=== PATIENT | female | born 1945 | race Caucasian/White ===

== ENCOUNTER 2016-03-20 14:36 | Outpatient (CLI) | payer MEDICARE, OTHER | END 2016-03-20 14:37 | disposition home or self-care (01) | DX: I26.99 Other pulmonary embolism without acute cor pulmonale (principal); Z79.01 Long term (current) use of anticoagulants ==

== ENCOUNTER 2016-04-04 08:00 | Outpatient (CLI) | payer MEDICARE, OTHER | END 2016-04-04 08:01 | disposition home or self-care (01) | DX: I26.99 Other pulmonary embolism without acute cor pulmonale (principal); Z79.01 Long term (current) use of anticoagulants ==

== ENCOUNTER 2016-04-19 08:00 | Outpatient (CLI) | payer MEDICARE, OTHER | END 2016-04-19 08:01 | disposition home or self-care (01) | DX: I82.529 Chronic embolism and thrombosis of unspecified iliac vein (principal); I10 Essential (primary) hypertension; Z79.01 Long term (current) use of anticoagulants; Z79.899 Other long term (current) drug therapy ==

== ENCOUNTER 2016-05-02 15:18 | Outpatient (CLI) | payer MEDICARE, OTHER | END 2016-05-02 15:19 | disposition home or self-care (01) | DX: I82.812 Embolism and thrombosis of superficial veins of left lower extremity (principal) ==

== ENCOUNTER 2016-06-05 09:04 | Outpatient (CLI) | payer MEDICARE, OTHER | END 2016-06-05 09:05 | disposition home or self-care (01) | DX: I26.99 Other pulmonary embolism without acute cor pulmonale (principal); Z79.01 Long term (current) use of anticoagulants ==

== ENCOUNTER 2016-06-19 13:06 | Outpatient (CLI) | payer MEDICARE, OTHER | END 2016-06-19 13:07 | disposition home or self-care (01) | DX: I26.99 Other pulmonary embolism without acute cor pulmonale (principal); Z79.01 Long term (current) use of anticoagulants; Z72.89 Other problems related to lifestyle ==

== ENCOUNTER 2016-07-19 09:57 | Outpatient (CLI) | payer MEDICARE, OTHER | END 2016-07-19 09:58 | LOC: LAB.N 09:57 | PROVIDERS: ATTEND Internal Medicine | DX: I26.99 Other pulmonary embolism without acute cor pulmonale (principal) | CPT/HCPCS: 85610 ==

== ENCOUNTER 2016-08-22 10:36 | Outpatient (CLI) | payer MEDICARE, OTHER | END 2016-08-22 10:37 | LOC: LAB.N 10:36 | PROVIDERS: ATTEND Internal Medicine | DX: I26.99 Other pulmonary embolism without acute cor pulmonale (principal); Z79.01 Long term (current) use of anticoagulants | CPT/HCPCS: 85610 ==

== ENCOUNTER 2016-09-18 14:02 | Outpatient (CLI) | payer MEDICARE, OTHER | END 2016-09-18 23:59 | disposition home or self-care (01) | LOC: LAB.N 14:02 | PROVIDERS: ATTEND Internal Medicine | DX: I26.99 Other pulmonary embolism without acute cor pulmonale (principal) | CPT/HCPCS: 85610 ==

== ENCOUNTER 2016-10-03 11:16 | Outpatient (CLI) | payer MEDICARE, OTHER | END 2016-10-03 11:17 | disposition home or self-care (01) | LOC: LAB.N 11:16 | PROVIDERS: ATTEND Internal Medicine | DX: I26.99 Other pulmonary embolism without acute cor pulmonale (principal) | CPT/HCPCS: 85610 ==

== ENCOUNTER 2016-10-18 08:00 | Outpatient (CLI) | payer MEDICARE, OTHER | END 2016-10-18 08:01 | disposition home or self-care (01) | LOC: LAB.N 08:00 | PROVIDERS: ATTEND Internal Medicine | DX: I26.99 Other pulmonary embolism without acute cor pulmonale (principal) | CPT/HCPCS: 85610 ==

== ENCOUNTER 2016-11-01 13:36 | Outpatient (CLI) | payer MEDICARE, OTHER | END 2016-11-01 13:37 | LOC: LAB.N 13:36 | PROVIDERS: ATTEND Internal Medicine | DX: I26.99 Other pulmonary embolism without acute cor pulmonale (principal); Z79.01 Long term (current) use of anticoagulants | CPT/HCPCS: 85610 ==

== ENCOUNTER 2016-11-17 06:54 | Outpatient (CLI) | payer MEDICARE, OTHER | END 2016-11-17 06:55 | disposition home or self-care (01) | LOC: LAB.N 06:54 | PROVIDERS: ATTEND Internal Medicine | DX: I26.99 Other pulmonary embolism without acute cor pulmonale (principal); Z79.01 Long term (current) use of anticoagulants | CPT/HCPCS: 85610 ==

== ENCOUNTER 2016-11-22 10:50 | Outpatient (CLI) | payer MEDICARE, OTHER | END 2016-11-22 10:51 | LOC: LAB.N 10:50 | PROVIDERS: ATTEND Internal Medicine | DX: I26.99 Other pulmonary embolism without acute cor pulmonale (principal); Z79.01 Long term (current) use of anticoagulants | CPT/HCPCS: 85610 ==

== ENCOUNTER 2016-11-29 08:00 | Outpatient (CLI) | payer MEDICARE, OTHER | END 2016-11-29 08:01 | disposition home or self-care (01) | LOC: LAB.N 08:00 | PROVIDERS: ATTEND Internal Medicine | DX: I26.99 Other pulmonary embolism without acute cor pulmonale (principal); Z79.01 Long term (current) use of anticoagulants | CPT/HCPCS: 85610 ==

== ENCOUNTER 2016-12-27 10:27 | Outpatient (CLI) | payer MEDICARE, OTHER | END 2016-12-27 10:28 | disposition home or self-care (01) | LOC: LAB.N 10:27 | PROVIDERS: ATTEND Internal Medicine | DX: I26.99 Other pulmonary embolism without acute cor pulmonale (principal); Z79.01 Long term (current) use of anticoagulants | CPT/HCPCS: 85610 ==

== ENCOUNTER 2017-01-25 15:36 | Outpatient (CLI) | payer MEDICARE, OTHER | END 2017-01-25 15:37 | disposition home or self-care (01) | LOC: LAB.N 15:36 | PROVIDERS: ATTEND Internal Medicine | DX: I26.99 Other pulmonary embolism without acute cor pulmonale (principal); Z79.01 Long term (current) use of anticoagulants | CPT/HCPCS: 85610 ==

== ENCOUNTER 2017-02-23 10:34 | Outpatient (CLI) | payer MEDICARE, OTHER | END 2017-02-23 10:35 | disposition home or self-care (01) | LOC: LAB.N 10:34 | PROVIDERS: ATTEND Internal Medicine | DX: I26.99 Other pulmonary embolism without acute cor pulmonale (principal); Z79.01 Long term (current) use of anticoagulants | CPT/HCPCS: 85610 ==

== ENCOUNTER 2017-03-15 08:00 | Outpatient (CLI) | payer MEDICARE, OTHER | END 2017-03-15 08:01 | LOC: LAB.N 08:00 | PROVIDERS: ATTEND Internal Medicine | DX: I26.99 Other pulmonary embolism without acute cor pulmonale (principal); Z79.01 Long term (current) use of anticoagulants | CPT/HCPCS: 85610 ==

== ENCOUNTER 2017-04-16 08:00 | Outpatient (CLI) | payer MEDICARE, OTHER | END 2017-04-16 08:01 | disposition home or self-care (01) | LOC: LAB.N 08:00 | PROVIDERS: ATTEND Internal Medicine | DX: I26.99 Other pulmonary embolism without acute cor pulmonale (principal); Z79.01 Long term (current) use of anticoagulants | CPT/HCPCS: 85610 ==

== ENCOUNTER 2017-04-30 16:45 | Outpatient (CLI) | payer MEDICARE, OTHER | END 2017-04-30 16:46 | disposition home or self-care (01) | LOC: LAB.N 16:45 | PROVIDERS: ATTEND Internal Medicine | DX: I26.99 Other pulmonary embolism without acute cor pulmonale (principal); Z79.01 Long term (current) use of anticoagulants | CPT/HCPCS: 85610 ==

== ENCOUNTER 2017-06-01 09:51 | Outpatient (CLI) | payer MEDICARE, OTHER ==
[2017-06-01 12:23] LABS: BASOPHILS # (AUTO) 0.1 10^3/uL (0.0-0.1); EOSINOPHILS # (AUTO) 0.5 10^3/uL (0.0-0.7); EOSINOPHILS % (AUTO) 9.7 %; HGB - HEMOGLOBIN 13.3 g/dL (12.0-16.0); LYMPHOCYTES # (AUTO) 1.5 10^3/uL (1.5-3.5); LYMPHOCYTES % (AUTO) 27.8 %; MEAN CORPUSCULAR HGB CONC 33.9 g/dL (32.0-36.0); MEAN CORPUSCULAR VOLUME 91.6 fL (81.0-99.0); MONOCYTES # (AUTO) 0.5 10^3/uL (0.0-1.0); MONOCYTES % (AUTO) 9.2 %; NEUTROPHILS # (AUTO) 2.9 10^3/uL (1.5-6.6); NEUTROPHILS % (AUTO) 52.3 %; PLT - PLATELET COUNT 207 10^3/uL (130-450); RED BLOOD COUNT 4.28 10^6/uL (4.20-5.40); RED CELL DISTRIBUTION WIDTH 15.1 % (12.0-15.0); WHITE BLOOD COUNT 5.5 x10^3/uL (4.8-10.8)
[2017-06-01 12:38] LABS: ALBUMIN 4.4 g/dL (3.2-5.5); ALBUMIN/GLOBULIN RATIO 1.8 (1.0-2.2); BILIRUBIN,TOTAL 0.7 mg/dL (0.2-1.0); CALCIUM 9.2 mg/dL (8.5-10.3); CREATININE 0.5 mg/dL (0.4-1.0); TOTAL PROTEIN 6.9 g/dL (6.7-8.2)
== END 2017-06-01 09:52 | disposition home or self-care (01) ==
LOC: LAB.N 09:51
PROVIDERS: ATTEND Internal Medicine
DX: Z79.899 Other long term (current) drug therapy (principal); I10 Essential (primary) hypertension; I26.99 Other pulmonary embolism without acute cor pulmonale; C50.919 Malignant neoplasm of unspecified site of unspecified female breast; Z79.01 Long term (current) use of anticoagulants
CPT/HCPCS: 36415; 80053; 80175; 84443; 85025; 85610

== ENCOUNTER 2017-06-27 10:49 | Outpatient (CLI) | payer MEDICARE, OTHER | END 2017-06-27 10:50 | disposition home or self-care (01) | LOC: LAB.N 10:49 | PROVIDERS: ATTEND Internal Medicine | DX: I26.99 Other pulmonary embolism without acute cor pulmonale (principal); Z79.01 Long term (current) use of anticoagulants | CPT/HCPCS: 85610 ==

== ENCOUNTER 2017-07-25 09:26 | Outpatient (CLI) | payer MEDICARE, OTHER | END 2017-07-25 09:27 | LOC: LAB.N 09:26 | PROVIDERS: ATTEND Internal Medicine | DX: I26.99 Other pulmonary embolism without acute cor pulmonale (principal); Z79.01 Long term (current) use of anticoagulants | CPT/HCPCS: 85610 ==

== ENCOUNTER 2017-08-13 08:00 | Outpatient (CLI) | payer MEDICARE, OTHER | END 2017-08-13 08:01 | LOC: LAB.N 08:00 | PROVIDERS: ATTEND Internal Medicine | DX: I26.99 Other pulmonary embolism without acute cor pulmonale (principal); Z79.01 Long term (current) use of anticoagulants | CPT/HCPCS: 85610 ==

== ENCOUNTER 2017-08-28 10:59 | Outpatient (CLI) | payer MEDICARE, OTHER | END 2017-08-28 11:00 | disposition home or self-care (01) | LOC: LAB.N 10:59 | PROVIDERS: ATTEND Internal Medicine | DX: I26.99 Other pulmonary embolism without acute cor pulmonale (principal); Z79.01 Long term (current) use of anticoagulants | CPT/HCPCS: 85610 ==

== ENCOUNTER 2017-09-28 09:07 | Outpatient (CLI) | payer MEDICARE, OTHER | END 2017-09-28 09:08 | disposition home or self-care (01) | LOC: LAB.N 09:07 | PROVIDERS: ATTEND Internal Medicine | DX: I26.99 Other pulmonary embolism without acute cor pulmonale (principal); Z79.01 Long term (current) use of anticoagulants | CPT/HCPCS: 85610 ==

== ENCOUNTER 2017-10-11 10:23 | Outpatient (CLI) | payer MEDICARE, OTHER | END 2017-10-11 10:24 | LOC: LAB.N 10:23 | PROVIDERS: ATTEND Internal Medicine | DX: I26.99 Other pulmonary embolism without acute cor pulmonale (principal); Z79.01 Long term (current) use of anticoagulants | CPT/HCPCS: 85610 ==

== ENCOUNTER 2017-11-01 11:02 | Outpatient (CLI) | payer MEDICARE, OTHER | END 2017-11-01 11:03 | disposition home or self-care (01) | LOC: LAB.N 11:02 | PROVIDERS: ATTEND Internal Medicine | DX: I26.99 Other pulmonary embolism without acute cor pulmonale (principal); Z79.01 Long term (current) use of anticoagulants | CPT/HCPCS: 85610 ==

== ENCOUNTER 2017-11-29 10:33 | Outpatient (CLI) | payer MEDICARE, OTHER | END 2017-11-29 10:34 | disposition home or self-care (01) | LOC: LAB.N 10:33 | PROVIDERS: ATTEND Internal Medicine | DX: I26.99 Other pulmonary embolism without acute cor pulmonale (principal); Z79.01 Long term (current) use of anticoagulants | CPT/HCPCS: 85610 ==

== ENCOUNTER → 2018-01-04 | Outpatient (CLI) | payer MEDICARE, OTHER ==
[2018-01-04 12:21] LABS: PT - PROTHROMBIN TIME 56.2 secs (9.9-12.6)
[2018-01-04 12:31] LABS: INR 5.1 (0.8-1.2)
== END ==
LOC: LAB.N 08:00
PROVIDERS: ATTEND Internal Medicine
DX: I26.99 Other pulmonary embolism without acute cor pulmonale (principal); Z79.01 Long term (current) use of anticoagulants
CPT/HCPCS: 36415; 85610

== ENCOUNTER → 2018-01-14 | Outpatient (CLI) | payer MEDICARE, OTHER | LOC: LAB.N 08:00 | PROVIDERS: ATTEND Internal Medicine | DX: I26.99 Other pulmonary embolism without acute cor pulmonale (principal); Z79.01 Long term (current) use of anticoagulants | CPT/HCPCS: 85610 ==

== ENCOUNTER 2018-02-07 10:10 | Outpatient (CLI) | payer MEDICARE, OTHER | END 2018-02-07 23:59 | LOC: LAB.N 10:10 | PROVIDERS: ATTEND Internal Medicine | DX: I26.99 Other pulmonary embolism without acute cor pulmonale (principal); Z79.01 Long term (current) use of anticoagulants | CPT/HCPCS: 85610 ==

== ENCOUNTER 2018-03-07 10:39 | Outpatient (CLI) | payer MEDICARE, OTHER | END 2018-03-07 23:59 | disposition home or self-care (01) | LOC: LAB.N 10:39 | PROVIDERS: ATTEND Internal Medicine | DX: I26.99 Other pulmonary embolism without acute cor pulmonale (principal); Z79.01 Long term (current) use of anticoagulants | CPT/HCPCS: 85610 ==

== ENCOUNTER 2018-04-03 08:00 | Outpatient (CLI) | payer MEDICARE, OTHER | END 2018-04-03 23:59 | disposition home or self-care (01) | LOC: LAB.N 08:00 | PROVIDERS: ATTEND Internal Medicine | DX: I26.99 Other pulmonary embolism without acute cor pulmonale (principal); Z79.01 Long term (current) use of anticoagulants | CPT/HCPCS: 85610 ==

== ENCOUNTER 2018-05-16 10:02 | Outpatient (CLI) | payer MEDICARE, OTHER | END 2018-05-16 23:59 | disposition home or self-care (01) | LOC: LAB.N 10:02 | PROVIDERS: ATTEND Internal Medicine | DX: Z79.01 Long term (current) use of anticoagulants (principal) | CPT/HCPCS: 85610 ==

== ENCOUNTER 2018-05-22 08:00 | Outpatient (CLI) | payer MEDICARE, OTHER ==
[2018-05-22 19:39] LABS: HGB - HEMOGLOBIN 13.7 g/dL (12.0-16.0); MEAN CORPUSCULAR HEMOGLOBIN 31.8 pg (27.0-31.0); MEAN CORPUSCULAR HGB CONC 33.4 g/dL (32.0-36.0); MEAN CORPUSCULAR VOLUME 95.3 fL (81.0-99.0); MEAN PLATELET VOLUME 8.1 fL (7.9-10.8); RED BLOOD COUNT 4.31 10^6/uL (4.20-5.40); RED CELL DISTRIBUTION WIDTH 13.4 % (12.0-15.0); WHITE BLOOD COUNT 5.6 x10^3/uL (4.8-10.8)
[2018-05-22 20:07] LABS: ALBUMIN 4.3 g/dL (3.2-5.5); ALBUMIN/GLOBULIN RATIO 1.7 (1.0-2.2); ALKALINE PHOSPHATASE 64 IU/L (42-121); ALT ALANINE AMINOTRANSFERASE 14 IU/L (10-60); AST ASPARTATE AMINOTRANSFERASE 18 IU/L (10-42); BILIRUBIN,TOTAL 0.9 mg/dL (0.2-1.0); BUN - BLOOD UREA NITROGEN 16 mg/dL (6-20); CALCIUM 9.5 mg/dL (8.5-10.3); CARBON DIOXIDE - CO2 28 mmol/L (21-32); CHLORIDE 103 mmol/L (101-111); CHOLESTEROL 170 mg/dL; CREATININE 0.6 mg/dL (0.4-1.0); GFR - MDRD 99 (>89); GLUCOSE 78 mg/dL (70-100); HDL CHOLESTEROL 57 mg/dL; LDL CHOLESTEROL,CALCULATED 101 mg/dL; LDL/HDL RATIO 1.8 (<4.4); SODIUM 139 mmol/L (135-145); TOTAL PROTEIN 6.9 g/dL (6.7-8.2); VLDL CHOLESTEROL 12 mg/dL
== END 2018-05-22 23:59 | disposition home or self-care (01) ==
LOC: LAB.N 08:00
PROVIDERS: ATTEND Internal Medicine
DX: Z79.01 Long term (current) use of anticoagulants (principal); I10 Essential (primary) hypertension
CPT/HCPCS: 36415; 80053; 80061; 83721; 85027; 85610

== ENCOUNTER 2018-06-19 08:00 | Outpatient (CLI) | payer MEDICARE, OTHER | END 2018-06-19 23:59 | disposition home or self-care (01) | LOC: LAB.N 08:00 | PROVIDERS: ATTEND Internal Medicine | DX: Z79.01 Long term (current) use of anticoagulants (principal) | CPT/HCPCS: 85610 ==

== ENCOUNTER 2018-06-26 08:00 | Outpatient (CLI) | payer MEDICARE, OTHER | END 2018-06-26 23:59 | disposition home or self-care (01) | LOC: LAB.N 08:00 | PROVIDERS: ATTEND Internal Medicine | DX: Z79.01 Long term (current) use of anticoagulants (principal) | CPT/HCPCS: 85610 ==

== ENCOUNTER 2018-07-03 09:02 | Outpatient (CLI) | payer MEDICARE, OTHER | END 2018-07-03 23:59 | disposition home or self-care (01) | LOC: LAB.N 09:02 | PROVIDERS: ATTEND Internal Medicine | DX: Z79.01 Long term (current) use of anticoagulants (principal) | CPT/HCPCS: 85610 ==

== ENCOUNTER 2018-07-11 10:19 | Outpatient (CLI) | payer MEDICARE, OTHER | END 2018-07-11 23:59 | disposition home or self-care (01) | LOC: LAB.N 10:19 | PROVIDERS: ATTEND Internal Medicine | DX: Z79.01 Long term (current) use of anticoagulants (principal) | CPT/HCPCS: 85610 ==

== ENCOUNTER 2018-07-30 08:00 | Outpatient (CLI) | payer MEDICARE, OTHER | END 2018-07-30 23:59 | disposition home or self-care (01) | LOC: LAB.N 08:00 | PROVIDERS: ATTEND Internal Medicine | DX: Z51.81 Encounter for therapeutic drug level monitoring (principal); Z79.01 Long term (current) use of anticoagulants | CPT/HCPCS: 85610 ==

== ENCOUNTER 2018-08-06 08:00 | Outpatient (CLI) | payer MEDICARE, OTHER | END 2018-08-06 23:59 | disposition home or self-care (01) | LOC: LAB.N 08:00 | PROVIDERS: ATTEND Internal Medicine | DX: Z51.81 Encounter for therapeutic drug level monitoring (principal); Z79.01 Long term (current) use of anticoagulants | CPT/HCPCS: 85610 ==

== ENCOUNTER 2018-08-12 08:00 | Outpatient (CLI) | payer MEDICARE, OTHER | END 2018-08-12 23:59 | disposition home or self-care (01) | LOC: LAB.N 08:00 | PROVIDERS: ATTEND Internal Medicine | DX: Z79.01 Long term (current) use of anticoagulants (principal) | CPT/HCPCS: 85610 ==

== ENCOUNTER 2018-08-20 08:00 | Outpatient (CLI) | payer MEDICARE, OTHER | END 2018-08-20 08:01 | disposition home or self-care (01) | LOC: LAB.N 08:00 | PROVIDERS: ATTEND Internal Medicine | DX: Z51.81 Encounter for therapeutic drug level monitoring (principal); Z79.01 Long term (current) use of anticoagulants | CPT/HCPCS: 85610 ==

== ENCOUNTER 2018-09-16 08:00 | Outpatient (CLI) | payer MEDICARE, OTHER | END 2018-09-16 23:59 | disposition home or self-care (01) | LOC: LAB.N 08:00 | PROVIDERS: ATTEND Internal Medicine | DX: Z79.01 Long term (current) use of anticoagulants (principal) | CPT/HCPCS: 85610 ==

== ENCOUNTER 2018-10-25 08:00 | Outpatient (CLI) | payer MEDICARE, OTHER | END 2018-10-25 23:59 | disposition home or self-care (01) | LOC: LAB.N 08:00 | PROVIDERS: ATTEND Family Medicine | DX: Z79.01 Long term (current) use of anticoagulants (principal) | CPT/HCPCS: 85610 ==

== ENCOUNTER 2018-11-11 08:00 | Outpatient (CLI) | payer MEDICARE, OTHER | END 2018-11-11 23:59 | disposition home or self-care (01) | LOC: LAB.N 08:00 | PROVIDERS: ATTEND Family Medicine | DX: Z79.01 Long term (current) use of anticoagulants (principal) | CPT/HCPCS: 85610 ==

== ENCOUNTER 2018-11-12 11:07 | Outpatient (CLI) | payer MEDICARE, OTHER ==
[2018-11-12 19:14] LABS: BASOPHILS # (AUTO) 0.1 10^3/uL (0.0-0.1); BASOPHILS % (AUTO) 0.9 %; EOSINOPHILS # (AUTO) 0.3 10^3/uL (0.0-0.7); EOSINOPHILS % (AUTO) 4.7 %; HGB - HEMOGLOBIN 13.2 g/dL (12.0-16.0); LYMPHOCYTES # (AUTO) 2.1 10^3/uL (1.5-3.5); LYMPHOCYTES % (AUTO) 30.4 %; MEAN CORPUSCULAR HGB CONC 31.3 g/dL (32.0-36.0); MEAN CORPUSCULAR VOLUME 95.9 fL (81.0-99.0); MEAN PLATELET VOLUME 9.8 fL (7.9-10.8); MONOCYTES # (AUTO) 0.6 10^3/uL (0.0-1.0); MONOCYTES % (AUTO) 8.6 %; NEUTROPHILS # (AUTO) 3.8 10^3/uL (1.5-6.6); NEUTROPHILS % (AUTO) 55.3 %; PLT - PLATELET COUNT 236 10^3/uL (130-450); RED CELL DISTRIBUTION WIDTH 14.1 % (12.0-15.0); WHITE BLOOD COUNT 6.8 x10^3/uL (4.8-10.8)
[2018-11-12 19:19] LABS: ALBUMIN 4.2 g/dL (3.2-5.5); ALBUMIN/GLOBULIN RATIO 1.5 (1.0-2.2); BILIRUBIN,TOTAL 0.5 mg/dL (0.2-1.0); CALCIUM 9.5 mg/dL (8.5-10.3); CREATININE 0.6 mg/dL (0.4-1.0)
[2018-11-15 12:06] LABS: LAMOTRIGINE 4.5 mcg/mL (4.0-18.0)
== END 2018-11-12 23:59 ==
LOC: LAB.N 11:07
PROVIDERS: ATTEND Psychiatry & Neurology Neurology
DX: Z51.81 Encounter for therapeutic drug level monitoring (principal); G40.909 Epilepsy, unspecified, not intractable, without status epilepticus; E55.9 Vitamin D deficiency, unspecified
CPT/HCPCS: 36415; 80053; 80175; 82652; 85025

== ENCOUNTER 2018-12-16 08:00 | Outpatient (CLI) | payer MEDICARE, OTHER | END 2018-12-16 23:59 | disposition home or self-care (01) | LOC: LAB.N 08:00 | PROVIDERS: ATTEND Family Medicine | DX: Z79.01 Long term (current) use of anticoagulants (principal) | CPT/HCPCS: 85610 ==

== ENCOUNTER 2019-01-20 09:27 | Outpatient (CLI) | payer MEDICARE, OTHER | END 2019-01-20 23:59 | disposition home or self-care (01) | LOC: LAB.N 09:27 | PROVIDERS: ATTEND Family Medicine | DX: Z79.01 Long term (current) use of anticoagulants (principal) | CPT/HCPCS: 85610 ==

== ENCOUNTER 2019-03-05 08:00 | Outpatient (CLI) | payer MEDICARE, OTHER | END 2019-03-05 23:59 | disposition home or self-care (01) | LOC: LAB.N 08:00 | PROVIDERS: ATTEND Family Medicine | DX: Z79.01 Long term (current) use of anticoagulants (principal) | CPT/HCPCS: 85610 ==

== ENCOUNTER 2019-04-11 09:30 | Outpatient (CLI) | payer MEDICARE, OTHER | END 2019-04-11 23:59 | disposition home or self-care (01) | LOC: LAB.N 09:30 | PROVIDERS: ATTEND Family Medicine | DX: Z79.01 Long term (current) use of anticoagulants (principal) | CPT/HCPCS: 85610 ==

== ENCOUNTER 2019-05-02 08:40 | Outpatient (CLI) | payer MEDICARE, OTHER | END 2019-05-02 23:59 | disposition home or self-care (01) | LOC: LAB.N 08:40 | PROVIDERS: ATTEND Family Medicine | DX: Z79.01 Long term (current) use of anticoagulants (principal) | CPT/HCPCS: 85610 ==

== ENCOUNTER 2019-05-27 08:00 | Outpatient (CLI) | payer MEDICARE, OTHER | END 2019-05-27 23:59 | disposition home or self-care (01) | LOC: LAB.N 08:00 | PROVIDERS: ATTEND Family Medicine | DX: Z79.01 Long term (current) use of anticoagulants (principal) | CPT/HCPCS: 85610 ==

== ENCOUNTER 2019-06-27 08:00 | Outpatient (CLI) | payer MEDICARE, OTHER | END 2019-06-27 20:35 | disposition home or self-care (01) | LOC: LAB.WCP 08:00 | PROVIDERS: ATTEND Nurse Practitioner | DX: I48.91 Unspecified atrial fibrillation (principal); Z79.01 Long term (current) use of anticoagulants; I26.99 Other pulmonary embolism without acute cor pulmonale ==

== ENCOUNTER 2019-06-27 14:35 | Outpatient (CLI) | payer MEDICARE, OTHER ==
[2019-06-27 18:07] LABS: ALBUMIN 4.3 g/dL (3.2-5.5); ALBUMIN/GLOBULIN RATIO 1.7 (1.0-2.2); BILIRUBIN,TOTAL 0.8 mg/dL (0.2-1.0); CALCIUM 9.5 mg/dL (8.5-10.3); CREATININE 0.7 mg/dL (0.4-1.0); MAGNESIUM 2.3 mg/dL (1.7-2.8); TOTAL PROTEIN 6.9 g/dL (6.7-8.2)
== END 2019-06-27 23:59 | disposition home or self-care (01) ==
LOC: LAB.WCP 14:35
PROVIDERS: ATTEND Nurse Practitioner
DX: I48.91 Unspecified atrial fibrillation (principal); Z79.899 Other long term (current) drug therapy; I10 Essential (primary) hypertension; R06.02 Shortness of breath; Z79.01 Long term (current) use of anticoagulants; I26.99 Other pulmonary embolism without acute cor pulmonale
CPT/HCPCS: 36415; 80053; 83735; 83880

== ENCOUNTER 2019-07-23 07:39 | Outpatient (CLI) | payer MEDICARE, OTHER | END 2019-07-23 07:40 | disposition home or self-care (01) | LOC: DI 07:39 | PROVIDERS: ATTEND Nurse Practitioner | DX: I07.1 Rheumatic tricuspid insufficiency (principal); I48.91 Unspecified atrial fibrillation; I10 Essential (primary) hypertension; Z41.1 Encounter for cosmetic surgery | CPT/HCPCS: 93306 ==

== ENCOUNTER 2019-07-31 08:00 | Outpatient (CLI) | payer MEDICARE, OTHER | END 2019-07-31 23:59 | disposition home or self-care (01) | LOC: LAB.WCP 08:00 | PROVIDERS: ATTEND Nurse Practitioner | DX: I48.91 Unspecified atrial fibrillation (principal); Z79.01 Long term (current) use of anticoagulants ==

== ENCOUNTER 2019-08-27 08:00 | Outpatient (CLI) | payer MEDICARE, OTHER | END 2019-08-27 23:59 | disposition home or self-care (01) | LOC: LAB.WCP 08:00 | PROVIDERS: ATTEND Nurse Practitioner | DX: I48.91 Unspecified atrial fibrillation (principal); Z79.01 Long term (current) use of anticoagulants ==

== ENCOUNTER 2019-11-25 08:00 | Outpatient (CLI) | payer MEDICARE, OTHER | END 2019-11-25 23:59 | disposition home or self-care (01) | LOC: LAB.WCP 08:00 | PROVIDERS: ATTEND Nurse Practitioner | DX: Z79.01 Long term (current) use of anticoagulants (principal) ==

== ENCOUNTER 2019-12-04 10:03 | Inpatient (IN) | payer MEDICARE, OTHER ==
--- NOTE | 2019-12-04 10:47 | ED Physician Documentation ---
PD HPI Fall - Stated complaint Stated Complaint: COUGHING BLOOD/RIB INJ - Chief complaint Chief Complaint: Trauma Ch/Bk - History obtained from History obtained from: Patient - History of Present Illness Mechanism of injury: Slipped (she slipped while walking to bathroom in the dark 10 days ago and struck left chest/ribs on dresser. Pain locally at lateral ribs. Was improved over the week and doing better, but now has 2-3 days of some cough and today had bright red hemoptysis (small amount into kleenex several times this morning) Fall distance: Standing position Where injury occurred: Home Timing - onset: How many days ago (10) Injury(ies) location: Chest (left lateral lower ribs) Associated symptoms: No: LOC, AMS Worsens with: Movement, Palpation, Other (deep breathing, but has been improved) Contributing factors: Anticoagulated (due to atrial fib). No: Intoxicated Similar symptoms before: Has not had sx before Recently seen: Not recently seen Review of Systems Constitutional: denies: Fever, Chills Nose: denies: Rhinorrhea / runny nose, Congestion Throat: denies: Sore throat Cardiac: reports: Chest pain / pressure (left lateral lower ribs.) Respiratory: reports: Cough, Hemoptysis (today). denies: Dyspnea GI: reports: Nausea (with lower appetite and not feeling well the past several days.). denies: Abdominal Pain, Vomiting Musculoskeletal: denies: Neck pain, Back pain Neurologic: denies: Generalized weakness, Near syncope Endocrine: reports: Easy bruising / bleeding PD PAST MEDICAL HISTORY - Past Medical History Cardiovascular: Hypertension, Deep vein thrombosis, Pulmonary embolism Respiratory: None Endocrine/Autoimmune: None WET SILK HANGER: Breast cancer Psych: Depression Musculoskeletal: Fatigue - Past Surgical History Past Surgical History: Yes Ortho: Hip replacement /WET SILK HANGER: Mastectomy Neuro: Craniotomy, Other - Present Medications Home Medications: Ambulatory Orders Medication Instructions Recorded Confirmed Warfarin [Coumadin] 7.5 mg PO .Sunday12/28/13 12/04/19 Metoprolol Succinate 100 tab DAILY 02/21/14 12/04/19 LORazepam [Lorazepam] 0.5 mg PO BID 08/03/14 12/04/19 Diltiazem HCl [Cardizem LA] 120 mg PO DAILY 12/04/19 12/04/19 Furosemide [Lasix] 20 mg PO DAILY 12/04/19 12/04/19 Metoprolol Succinate 50 mg PO QPM 12/04/19 12/04/19 Potassium Chloride 20 meq PO DAILY 12/04/19 12/04/19 Sertraline HCl 100 mg PO DAILY 12/04/19 12/04/19 Warfarin [Coumadin] 5 mg PO .6D/WEEK 12/04/19 12/04/19 lamoTRIgine [LaMICtal] 150 mg PO BID 12/04/19 12/04/19 - Allergies Allergies/Adverse Reactions: Allergies Allergy/AdvReac Type Severity Reaction Status Date / Time hydromorphone HCl * Allergy Unknown Verified 12/04/19 10:28 [From Dilaudid] - Social History Does the pt smoke?: No Smoking Status: Never smoker Does the pt drink ETOH?: No Does the pt have substance abuse?: No - Immunizations Immunizations are current?: Yes - POLST Patient has POLST: Yes PD ED PE NORMAL - Vitals Vital signs reviewed: Yes - General General: Alert and oriented X 3, Well developed/nourished, Other (the kleenex she brought has some bright red blood, with mild clear sputum, about 2-3 ml of blood. ) - HEENT HEENT: Pharynx benign. No: Moist mucous membranes - Neck Neck: Supple, no meningeal sign, No adenopathy - Cardiac Cardiac: No murmur. No: RRR (irregular but normal rate. ) - Respiratory Respiratory: Clear bilaterally - Abdomen Abdomen: Soft, Non tender - Back Back: No CVA TTP - Derm Derm: Normal color, Warm and dry - Extremities Extremities: No tenderness to palpate, Normal ROM s pain, No edema, No calf tenderness / cord - Neuro Neuro: Alert and oriented X 3, No motor deficit, Normal speech Results - Vitals Vitals: Vital Signs - 24 hr 12/04/19 12/04/19 12/04/19 10:18 12:19 13:58 Temperature 36.3 C L 37.3 C 37 C Heart Rate 104 H 93 89 Respiratory 16 16 14 Rate Blood Pressure 128/74 104/67 120/77 O2 Saturation 99 98 12/04/19 12/04/19 12/04/19 14:09 14:15 15:03 Temperature 37.4 C 37.4 C 37.4 C Heart Rate 97 100 107 H Respiratory 16 16 24 Rate Blood Pressure 128/85 H 131/78 H 131/104 H O2 Saturation 99 Oxygen O2 Source Room air - Tele (time rhythm occurred) presentation Telemetry / rhythm strip: Atrial fibrillation (rate controlled) - Labs Labs: Laboratory Tests 12/04/19 12/04/19 12/04/19 11:20 11:20 11:20 WBC 10.9 H RBC 4.14 L Hgb 13.1 Hct 39.2 MCV 94.7 MCH 31.6 H MCHC 33.4 RDW 13.3 Plt Count 351 MPV 8.7 Neut # (Auto) 8.3 H Lymph # (Auto) 1.4 L [place] # (Auto) 1.0 Eos # (Auto) 0.1 Baso # (Auto) 0.0 Absolute Nucleated RBC 0.00 Nucleated RBC % 0.0 PT INR Sodium 137 Potassium 4.1 Chloride 102 Carbon Dioxide 25 Anion Gap 10.0 BUN 15 Creatinine 0.5 Estimated GFR (MDRD) 121 Glucose 111 H Calcium 9.2 Total Bilirubin 0.6 AST 20 ALT 22 Alkaline Phosphatase 106 Troponin I High Sens 6.3 B-Natriuretic Peptide Total Protein 7.3 Albumin 3.5 Globulin 3.8 Albumin/Globulin Ratio 0.9 L Lipase 26 Blood Type 12/04/19 12/04/19 12/04/19 11:20 11:35 13:24 WBC RBC Hgb Hct MCV MCH MCHC RDW Plt Count MPV Neut # (Auto) Lymph # (Auto) [place] # (Auto) Eos # (Auto) Baso # (Auto) Absolute Nucleated RBC Nucleated RBC % PT > 120.0 H* INR > 10.0 H* Sodium Potassium Chloride Carbon Dioxide Anion Gap BUN Creatinine Estimated GFR (MDRD) Glucose Calcium Total Bilirubin AST ALT Alkaline Phosphatase Troponin I High Sens B-Natriuretic Peptide 455 H Total Protein Albumin Globulin Albumin/Globulin Ratio Lipase Blood Type A NEGATIVE - Rads (name of study) CXR with ribs Radiology: Prelim report reviewed (left 10th rib fracture and left lower lobe opacity - contusion vs pneumonia), See rad report chest CT Radiology: Prelim report reviewed (10th rib fracture, minimal effusion. No PTX. Left lower lobe uniform opacity groundglass, c/w contusion or pneumonia. Some perihilar small nodes. No central masses/tumors. ), See rad report PD MEDICAL DECISION MAKING - ED course Complexity details: reviewed results (hermoptysis with very high INR likely due to continued COumain with poor oral intake the past week. ), re-evaluated patient (no further hemoptysis while here in the ER. ), considered differential, d/w patient, d/w executive consultant (Talked with Dr. Sanchez, Hospitalist at [facility], who felt the patient was not necessarily in need of higher level of care and asked to consult Pulmonary. ), other (I talked with Dr. Capps, Pulmonary sludge control operator, who felt with the CT findings of likely pneumonia and no central lesions/masses, that the likelihood of massive hemoptysis is very unlikely. She felt it is most likely capillary bleeding from bronchial irritation. Increased bleeding would be slow increase) ED course: I initially talked with Dr. Fernando, Hospitalist, who felt concern about potential massive hemoptysis and inability to respond to it (other than nebs or TXA, we would not have IR nor Pulmonary for bronch), so asked to transfer the patient. However, The [facility] Hospitalist and then also Pulmonary consultants did not feel there was much probability of massive hemoptysis and if increased coughing blood, would be gradual/nonmassive, and could prompt transfer later if needed. Otherwise to treat with coumadin reversal, abx for pneumonia, and watching degree of couhg/hemoptysis. I talked with our hospitalist again, who in lieu of those opinions, accepted the patient to the Hospitalist service here at [facility]. Departure - Departure Disposition: 66 [facility] DC/Xfer Clinical Impression: Cough with hemoptysis, Supratherapeutic international normalized ratio (INR), Anticoagulant long-term use Atrial fibrillation Qualifiers: Atrial fibrillation type: longstanding persistent Qualified Code(s): I48.11 - Longstanding persistent atrial fibrillation Pneumonia Qualifiers: Pneumonia type: due to unspecified organism Laterality: left Lung location: lower lobe of lung Qualified Code(s): J18.9 - Pneumonia, unspecified organism Discharge Date/Time: 12/04/19 16:08
--- NOTE | 2019-12-04 11:05 | XRAY Report ---
PROCEDURE: Ribs w/PA Chest LT INDICATIONS: fall, left rib pain, coughing up blood TECHNIQUE: 2 views of the left ribs were acquired, along with a single view chest. COMPARISON: Chest x-ray 12/28/2013, left rib series 07/13/2013 FINDINGS: Surgical changes and devices: None. Bones and chest wall: There is a mildly displaced acute fracture of the left 10th rib anterolaterally . Old healed fractures of the left 9th and 10th posterior ribs are redemonstrated. Overlying soft tis sues appear unremarkable. Lungs and pleura: There is a small left pleural effusion. No definite pneumothorax. Confluent left b asilar airspace opacities are demonstrated. Right lung is clear. Mediastinum: Mediastinal contours appear unchanged. Heart size is normal. IMPRESSION: 1. Mildly displaced acute left 10th rib fracture. 2. Small left pleural effusion without evidence of pneumothorax. 3. New confluent left basilar airspace opacities. Given patient's history of trauma, the findings may represent pulmonary contusions or hemorrhage. Consider further evaluation with chest CT. Reviewed by: Joel Hinds MD on 12/04/2019 10:04 AM [place] Approved by: Joel Hinds MD on 12/04/2019 10:04 AM [place] Station ID: [id number]
[2019-12-04] MEDS ORDERED: SODIUM CHLORIDE 0.9% 1,000 ML IV STA (11:14)
[2019-12-04] MEDS ORDERED: KETOROLAC 15 MG/ML VIAL IVP STA (11:14)
[2019-12-04 11:27] LABS: BASOPHILS % (AUTO) 0.4 %; EOSINOPHILS # (AUTO) 0.1 10^3/uL (0.0-0.7); EOSINOPHILS % (AUTO) 1.1 %; HGB - HEMOGLOBIN 13.1 g/dL (12.0-16.0); LYMPHOCYTES # (AUTO) 1.4 10^3/uL (1.5-3.5); LYMPHOCYTES % (AUTO) 12.4 %; MEAN CORPUSCULAR HEMOGLOBIN 31.6 pg (27.0-31.0); MEAN CORPUSCULAR HGB CONC 33.4 g/dL (32.0-36.0); MEAN CORPUSCULAR VOLUME 94.7 fL (81.0-99.0); MEAN PLATELET VOLUME 8.7 fL (7.9-10.8); MONOCYTES % (AUTO) 9.2 %; NEUTROPHILS # (AUTO) 8.3 10^3/uL (1.5-6.6); NEUTROPHILS % (AUTO) 76.3 %; PLT - PLATELET COUNT 351 10^3/uL (130-450); RED BLOOD COUNT 4.14 10^6/uL (4.20-5.40); RED CELL DISTRIBUTION WIDTH 13.3 % (12.0-15.0); WHITE BLOOD COUNT 10.9 x10^3/uL (4.8-10.8)
[2019-12-04] MEDS ORDERED: IOVERSOL 320 100 ML VIAL IVP ONE ×2 (11:28→17:43)
[2019-12-04 11:39] LABS: ALBUMIN 3.5 g/dL (3.2-5.5); ALBUMIN/GLOBULIN RATIO 0.9 (1.0-2.2); BILIRUBIN,TOTAL 0.6 mg/dL (0.2-1.0); CALCIUM 9.2 mg/dL (8.5-10.3); CREATININE 0.5 mg/dL (0.4-1.0); TOTAL PROTEIN 7.3 g/dL (6.7-8.2)
[2019-12-04 12:03] LABS: PT - PROTHROMBIN TIME > 120.0 secs (9.9-12.6)
[2019-12-04 12:04] LABS: INR > 10.0 (0.8-1.2)
[2019-12-04] MEDS ORDERED: PHYTONADIONE 10 MG/ML AMP IVP STA (12:04)
[2019-12-04] MEDS ORDERED: FAMOTIDINE 20 MG/2 ML SYRINGE IVP STA (12:06)
--- NOTE | 2019-12-04 12:54 | CT Report ---
PROCEDURE: CHEST W INDICATIONS: fell/rib fx; now with coughing blood CONTRAST: IV CONTRAST: Optiray 320 ml: 100 PO CONTRAST: *NO PO CONTRAST TECHNIQUE: After the administration of intravenous contrast, 5 mm thick sections acquired from the pulmonary api kaitlin to the posterior costophrenic angles. 7 mm thick coronal MIP reformats were acquired. For radia tion dose reduction, the following was used: automated exposure control, adjustment of mA and/or kV according to patient size. COMPARISON: Chest x-ray 12/04/2019, CT chest 12/23/2013. FINDINGS: Image quality: Excellent. Lungs and pleura: There is consolidation posteriorly in the left lower lobe demonstrating heterogene ous enhancement with areas of internal hypoattenuation. There is a small left pleural effusion withou t definite hemothorax. No pneumothorax. Within the aerated left lung, there are clustered areas of gr oundglass opacity in the left lower lobe with areas of confluence associated with mild septal thicken ing. There are multiple small clustered lucent foci within the left lower lobe peripherally. The left upper lobe is clear. There is a small peripheral nodule within the right lower lobe measuring up to 0.3 cm on series 4 image 178 which appears decreased in size from the prior CT. Mild scarring is also demonstrated within the right lower lobe. No right pleural effusion. Mediastinum: Heart size is normal. No pericardial effusion. Thoracic aorta and central pulmonary a rteries are normal in size. Multiple prominent left infrahilar and left mediastinal lymph nodes are demonstrated. These include a paraesophageal node measuring up to 0.8 cm in short axis. Esophagus is normal in caliber. No hiatal hernia. Bones and chest wall: There is a mildly displaced fracture of the left 10th rib anterolaterally. Old healed fractures are also demonstrated within the left posterior ninth and 10th ribs. No vertebral isma dy compression fractures. No axillary or supraclavicular adenopathy by size criteria. Thyroid gland demonstrates a small hypoattenuating nodule within the right thyroid lobe measuring approximately 0. 7 cm.. Abdomen: Visualized upper abdomen demonstrates no evidence of a splenic laceration. No intraperitone al free fluid within the visualized upper abdomen. IMPRESSION: 1. Mildly displaced acute fracture of the left 10th rib demonstrated as seen on the recent x-ray. 2. Small left pleural effusion without definite evidence of a hemothorax. No pneumothorax. 3. Left lower lobe consolidation with heterogeneous enhancement. Adjacent confluent ground glass opac ities and septal thickening are also demonstrated. Given the associated mildly enlarged left infrahil ar and mediastinal lymph nodes, the findings are suggestive of pneumonia. However, in the context of trauma the findings may also represent pulmonary contusions and lacerations with pulmonary hemorrhage although this is considered slightly less likely given the absence of an associated hemothorax. Darnell mmend correlation clinically including for possible signs of infection. Reviewed by: Joel Hinds MD on 12/04/2019 11:53 AM [place] Approved by: Joel Hinds MD on 12/04/2019 11:53 AM [place] Station ID: [id number]
[2019-12-04] MEDS ORDERED: cefTRIAXone 1 GM VIAL IVP STA (13:54)
[2019-12-04] MEDS ORDERED: DOXYCYCLINE 100 MG TABLET PO STA (13:55)
[2019-12-04] MEDS ORDERED: SODIUM CHLORIDE FLUSH 0.9% 10 ML SYRINGE IVP PRN (15:38)
[2019-12-04] MEDS ORDERED: ONDANSETRON 4 MG/2 ML VIAL IVP PRN (15:38)
[2019-12-04] MEDS ORDERED: AZITHROMYCIN INJ 500 MG in SODIUM CHLORIDE 0.9% 250 ML IV STA (15:48)
[2019-12-04] MEDS ORDERED: oxyCODONE/ACET 5/325 Prepack 4 PO PRN (15:51)
[2019-12-04] MEDS ORDERED: DEXTROSE 5%-0.9% NACL 1,000 ML IV SCH (16:00)
[2019-12-04] MEDS: ACETAMINOPHEN 325 MG TABLET PO PRN ×2 (16:22→23:01)
[2019-12-04] MEDS: SODIUM CHLORIDE FLUSH 0.9% 10 ML SYRINGE IVP SCH (16:22)
[2019-12-04] MEDS: SACCHAROMYCES BOULARDII 250 MG CAPSULE PO SCH (16:22)
--- NOTE | 2019-12-04 16:27 | PHARMACY PROGRESS NOTE ---
- Best Possible Medication History Admit Date and Time: 12/04/19 1535 Processed by: Pharmacy Medication History completed: Yes Patient Interview: Completed Secondary Source(s): Physician records (PATIENT INTERVIEWED BY THERAPEUTIC RIDING INSTRUCTOR. PATIENT ABLE TO CONFIRM HOME MEDICATIONS ), Pharmacy records, Insurance records As the person ultimately responsible for medication therapy, providers are able to order a medication from an existing home medication list in [facility] via the "Reconcile Routine" prior to Confirmation of that medication by call center support representative. Such practice is discouraged except when the physician, in their clinical judgment, deems that a medical need exists for a medication without regard to previous use.
[2019-12-04 17:08] LABS: HGB - HEMOGLOBIN 11.8 g/dL (12.0-16.0)
[2019-12-04 17:17] LABS: INR 2.3 (0.8-1.2); PT - PROTHROMBIN TIME 24.1 secs (9.9-12.6)
--- NOTE | 2019-12-04 19:40 | HISTORY & PHYSICAL EXAMINATION ---
Chief Complaint - Chief Complaint Chief Complaint: hemoptysis History of Present Illness - Admitted From [facility] - History Obtained From Records Reviewed: Yes History obtained from: Patient - History of Present Illness HPI Comment/Other: Patient is 74-year-old female with history of seizures, hypertension, atrial fibrillation on Coumadin, history of DVT PE and history of breast cancer who presented to the ED with hemoptysis. Sometime last week she careened into a dresser at home. She states she had been doing well until the hemoptysis today. In the ED work-up included an INR which showed that it was greater than 10. Further work-up also included CT chest which confirmed an acute Left 10thrib fracture and Left lower lobe consolidation suggestive of pneumonia. Consequently she was presented for admission. Upon arriving to the medical floor, she sat on her bed and immediately heard a popping sound. This was followed by extreme pain with the slightest movement. The pain was located on the side of the rib fracture. She denied chest pain. She denied dyspnea but had worsening pain on the side of the rib fracture with inspiration. She denied abdominal pain, nausea, vomiting, fever or chills. 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 Patient's mother had hypertension. Living arrangement: At home Living Situation: With spouse/s.o. Social History Notes: Patient quit smoking in 1971. She has a glass of wine daily. Denies any recreational substances. - POLST Patient has POLST: Yes POLST Status: Full Code Meds/Allgy - Home Medications Home Medications: Ambulatory Orders Medication Instructions Recorded Confirmed Warfarin [Coumadin] 7.5 mg PO .Sunday12/28/13 12/04/19 Metoprolol Succinate 100 tab DAILY 02/21/14 12/04/19 LORazepam [Lorazepam] 0.5 mg PO BID 08/03/14 12/04/19 Diltiazem HCl [Cardizem LA] 120 mg PO DAILY 12/04/19 12/04/19 Furosemide [Lasix] 20 mg PO DAILY 12/04/19 12/04/19 Metoprolol Succinate 50 mg PO QPM 12/04/19 12/04/19 Potassium Chloride 20 meq PO DAILY 12/04/19 12/04/19 Sertraline HCl 100 mg PO DAILY 12/04/19 12/04/19 Warfarin [Coumadin] 5 mg PO .6D/WEEK 12/04/19 12/04/19 lamoTRIgine [LaMICtal] 150 mg PO BID 12/04/19 12/04/19 - Allergies Allergies/Adverse Reactions: Allergies Allergy/AdvReac Type Severity Reaction Status Date / Time hydromorphone HCl * Allergy Unknown Verified 12/04/19 10:28 [From Dilaudid] Review of Systems - Constitutional Constitutional: denies: Fatigue, Fever, Chills - Eyes Eyes: denies: Pain - Ears, Nose & Throat Ears, Nose & Throat: denies: Ear pain - Cardiovascular Cariovascular: reports: Irregular heart rate. denies: Chest pain, Edema, Lig htheadedness, Exertional dyspnea, Decr. exercise tolerance - Respiratory Respiratory: reports: Cough, Sputum production (reddish), Hemoptysis. denies: SOB at rest, SOB with exertion - Gastrointestinal Gastrointestinal: denies: Abdominal pain, Abdominal distention, Constipation, Diarrhea, Nausea, Vomiting, Reflux/heartburn - Genitourinary Genitourinary: denies: Dysuria, Frequency, Urgency, Hematuria - Musculoskeletal Musculoskeletal: reports: Back pain (left 10th rib). denies: Muscle pain, Muscle aches - Integumentary Integumentary: denies: Rash, Pruritis, Lesions - Neurological Neurological: denies: General weakness, Focal weakness, Headache - Psychiatric Psychiatric: denies: Depression, Anxiety - Endocrine Endocrine: denies: Polyuria, Polydypsia - Hematologic/Lymphatic Hematologic/Lymphatic: denies: Anemia, Bruising Prior Level of Functionality: Patient is independent of activities of daily living Exam - Vital Signs Vital Signs: Vital Signs x48h Temp Pulse Resp BP Pulse Ox 12/04/19 15:57 37.6 C H 98 16 123/88 H 100 12/04/19 15:03 37.4 C 107 H 24 131/104 H 99 12/04/19 14:15 37.4 C 100 16 131/78 H 12/04/19 14:09 37.4 C 97 16 128/85 H 12/04/19 13:58 37 C 89 14 120/77 12/04/19 12:19 37.3 C 93 16 104/67 98 - Physical Exam General Appearance: positive: Alert, Moderate distress, Severe distress Eyes Bilateral: positive: PERRL, EOMI ENT: positive: No signs of dehydration Neck: positive: No JVD, Trachea midline Respiratory: positive: Chest non-tender, No respiratory distress, Breath sounds nml. negative: Wheezes Cardiovascular: positive: Irregularly irregular, Tachycardia Abdomen: positive: Non-tender, No organomegaly, Nml bowel sounds, No distention. negative: Guarding, Rebound Back: positive: CVA tenderness (L) (displaced/ fractured 10th rib) Skin: positive: Color nml, No rash, Warm, Dry Extremities: positive: Non-tender, Full ROM, Nml appearance, No pedal edema Neurologic/Psychiatric: positive: Oriented x3, Mood/affect nml Conclusion/Plan - Problem List (1) Supratherapeutic international normalized ratio (INR) Conclusion/Plan: Patient's INR upon presentation was greater than 10. This is thought to be the reason behind patient's hemoptysis. Patient was given FFP x1 and vitamin K. Recheck an INR was 2.3. We will continue to hold Coumadin for now. (2) Pneumonia Conclusion/Plan: On Rocephin and azithromycin. Tylenol PRN for fever. Patient given an incentive spirometer and encouraged to use as often as possible. Qualifiers: Pneumonia type: due to unspecified organism Laterality: left Lung location: lower lobe of lung Qualified Code(s): J18.9 - Pneumonia, unspecified organism (3) Rib fracture Conclusion/Plan: Left 10th rib fracture. Patient receiving morphine as needed. Flexeril ordered 10 mg 3 times daily. (4) Atrial fibrillation Conclusion/Plan: Hold Coumadin because patient's INR was greater than 10. We will continue patient's metoprolol succinate 50 mg daily. (5) Hypertension Conclusion/Plan: On metoprolol succinate 50 mg p.o. every afternoon. (6) Personal history of DVT (deep vein thrombosis) Conclusion/Plan: Patient is on Coumadin at home. However INR today was greater than 10 and required FFP and vitamin K. Recheck an INR was 2.3. We will continue to hold Coumadin because of hemoptysis. (7) History of seizures Conclusion/Plan: On lamotrigine 150 mg twice daily. We will continue - Lab Results Fish Bones: 12/04/19 17:02 12/04/19 11:20 Core Measures - Anticipated LOS I expect patient to be DC'd or transferred within 96 hours.: Yes - DVT/VTE - Prophylaxis VTE/DVT Device ordered at admit?: Yes VTE/DVT Prophylaxis med ordered at admit?: No
[2019-12-04] MEDS ORDERED: MORPHINE 2 MG/ML CARPUJECT IVP STA (19:56)
[2019-12-04] MEDS: CYCLOBENZAPRINE 10 MG TABLET PO PRN (20:13)
[2019-12-04] MEDS ORDERED: QUEtiapine 25 MG TABLET PO SCH (21:00)
[2019-12-04] MEDS ORDERED: FAMOTIDINE 20 MG TABLET PO SCH (21:00)
[2019-12-04] MEDS ORDERED: PHENYTOIN ER 100 MG CAPSULE PO SCH (21:00)
[2019-12-04] MEDS: LORazepam 0.5 MG TABLET PO SCH (21:07)
[2019-12-04] MEDS: lamoTRIgine 100 MG TABLET PO SCH (21:07)
[2019-12-04] MEDS: METOPROLOL SUCCINATE 50 MG TABLET PO SCH (21:07)
[2019-12-04] MEDS: guaiFENesin 600 MG TABLET PO SCH (21:07)
[2019-12-05] MEDS: SODIUM CHLORIDE FLUSH 0.9% 10 ML SYRINGE IVP SCH ×4 (03:29→20:47)
[2019-12-05] MEDS: MORPHINE 2 MG/ML CARPUJECT IVP PRN ×2 (03:35→08:41)
[2019-12-05] MEDS: ACETAMINOPHEN 325 MG TABLET PO PRN ×3 (03:35→20:45)
[2019-12-05 05:37] LABS: BASOPHILS % (AUTO) 0.4 %; EOSINOPHILS # (AUTO) 0.2 10^3/uL (0.0-0.7); EOSINOPHILS % (AUTO) 1.8 %; HGB - HEMOGLOBIN 10.7 g/dL (12.0-16.0); LYMPHOCYTES # (AUTO) 1.5 10^3/uL (1.5-3.5); LYMPHOCYTES % (AUTO) 15.5 %; MEAN CORPUSCULAR HEMOGLOBIN 30.1 pg (27.0-31.0); MEAN CORPUSCULAR HGB CONC 31.4 g/dL (32.0-36.0); MEAN CORPUSCULAR VOLUME 96.1 fL (81.0-99.0); MEAN PLATELET VOLUME 8.5 fL (7.9-10.8); MONOCYTES # (AUTO) 1.1 10^3/uL (0.0-1.0); NEUTROPHILS % (AUTO) 70.8 %; PLT - PLATELET COUNT 284 10^3/uL (130-450); RED BLOOD COUNT 3.55 10^6/uL (4.20-5.40); RED CELL DISTRIBUTION WIDTH 13.2 % (12.0-15.0); WHITE BLOOD COUNT 9.9 x10^3/uL (4.8-10.8)
[2019-12-05 05:48] LABS: CALCIUM 8.5 mg/dL (8.5-10.3); CREATININE 0.5 mg/dL (0.4-1.0)
[2019-12-05 06:11] LABS: INR 1.6 (0.8-1.2); PT - PROTHROMBIN TIME 16.9 secs (9.9-12.6)
[2019-12-05] MEDS: SACCHAROMYCES BOULARDII 250 MG CAPSULE PO SCH ×2 (08:25→16:16)
[2019-12-05] MEDS: guaiFENesin 600 MG TABLET PO SCH ×2 (08:57→20:46)
[2019-12-05] MEDS: METOPROLOL SUCCINATE 50 MG TABLET PO SCH ×2 (08:57→20:46)
[2019-12-05] MEDS: LORazepam 0.5 MG TABLET PO SCH ×2 (08:58→20:46)
[2019-12-05] MEDS: SERTRALINE 50 MG TABLET PO SCH (08:58)
[2019-12-05] MEDS: lamoTRIgine 100 MG TABLET PO SCH ×2 (08:59→20:46)
[2019-12-05] MEDS ORDERED: AZITHROMYCIN INJ 250 MG in SODIUM CHLORIDE 0.9% 250 ML IV SCH (09:00)
[2019-12-05] MEDS ORDERED: FLUoxetine 10 MG CAPSULE PO SCH (09:00)
[2019-12-05] MEDS: cefTRIAXone 2 GM in SODIUM CHLORIDE 0.9% MINIBAG 100 ML IV SCH (09:08)
[2019-12-05] MEDS: AZITHROMYCIN INJ 500 MG in SODIUM CHLORIDE 0.9% 250 ML IV SCH (11:30)
[2019-12-05] MEDS: CYCLOBENZAPRINE 10 MG TABLET PO PRN (12:00)
--- NOTE | 2019-12-05 12:35 | PROVIDER PROGRESS NOTE ---
Subjective - Prog Note Date Prog Note Date: 12/05/19 - Subjective Subjective: Nursing staff reports patient has become progressively confused throughout the day. The patient denies any trauma to the head. She reports no dyspnea. She has not had any further hemoptysis. She does have pleuritic chest pain that is evident with inspiration. She thinks her INR is elevated due to poor diet due to the chest pain over the past few days as she reports she has been relatively stable on her current dose of Coumadin for quite some time. Current Medications - Current Medications Current Medications: Active Medications Acetaminophen (Tylenol) 650 mg PO Q4HR PRN PRN Reason: Pain 1 to 4 Last Admin: 12/05/19 11:59 Dose: 650 mg Documented by: Cyclobenzaprine HCl (Flexeril) 10 mg PO TID PRN PRN Reason: Spasms Last Admin: 12/05/19 12:00 Dose: 10 mg Documented by: Diltiazem HCl (Cardizem Cd) 120 mg PO DAILY [facility] Furosemide (Lasix) 20 mg PO DAILY [facility] Guaifenesin (Mucinex) 600 mg PO BID [facility] Last Admin: 12/05/19 08:57 Dose: 600 mg Documented by: Ceftriaxone Sodium 2 gm/ (Sodium Chloride) 100 mls @ 200 mls/hr IV DAILY [facility] Stop: 12/08/19 09:29 Last Infusion: 12/05/19 09:38 Dose: Infused Documented by: Azithromycin 500 mg/ Sodium (Chloride) 250 mls @ 250 mls/hr IV DAILY [facility] Stop: 12/06/19 09:59 Last Infusion: 12/05/19 12:30 Dose: Infused Documented by: Lamotrigine (Lamictal) 150 mg PO BID [facility] Last Admin: 12/05/19 08:59 Dose: 150 mg Documented by: Lorazepam (Ativan) 0.5 mg PO BID [facility] Last Admin: 12/05/19 08:58 Dose: 0.5 mg Documented by: Metoprolol Succinate (Toprol Xl) 100 mg PO DAILY [facility] Last Admin: 12/05/19 08:57 Dose: 100 mg Documented by: Metoprolol Succinate (Toprol Xl) 50 mg PO QPM [facility] Last Admin: 12/04/19 21:07 Dose: 50 mg Documented by: Morphine Sulfate (Morphine (Carpuject)) 2 mg IVP Q2HR PRN PRN Reason: PAIN Last Admin: 12/05/19 08:41 Dose: 2 mg Documented by: Ondansetron HCl (Zofran Inj) 4 mg IVP Q6HR PRN PRN Reason: Nausea / Vomiting Last Admin: 12/04/19 20:13 Dose: 4 mg Documented by: Saccharomyces Boulardii (Florastor) 250 mg PO BIDWM [facility] Last Admin: 12/05/19 08:25 Dose: 250 mg Documented by: Sertraline HCl (Zoloft) 100 mg PO DAILY [facility] Last Admin: 12/05/19 08:58 Dose: 100 mg Documented by: Sodium Chloride (Normal Saline Flush 0.9%) 10 ml IVP PRN PRN PRN Reason: NEEDED PER PROVIDER ORDERS Sodium Chloride (Normal Saline Flush 0.9%) 10 ml IVP 0100,0900,1700 [facility] Last Admin: 12/05/19 09:27 Dose: 10 ml Documented by: Warfarin [Coumadin] 7.5 mg PO .Sunday12/28/13 Metoprolol Succinate 100 tab DAILY 02/21/14 LORazepam [Lorazepam] 0.5 mg PO BID 08/03/14 Diltiazem HCl [Cardizem LA] 120 mg PO DAILY 12/04/19 Furosemide [Lasix] 20 mg PO DAILY 12/04/19 Metoprolol Succinate 50 mg PO QPM 12/04/19 Potassium Chloride 20 meq PO DAILY 12/04/19 Sertraline HCl 100 mg PO DAILY 12/04/19 Warfarin [Coumadin] 5 mg PO .6D/WEEK 12/04/19 lamoTRIgine [LaMICtal] 150 mg PO BID 12/04/19 Objective - Vital Signs/Intake & Output Reviewed Vital Signs: Yes Vital Signs: Vital Signs x48h Temp Pulse Resp BP BP Pulse Ox 12/05/19 11:38 37.4 C 122 H 20 133/89 H 95 12/05/19 07:36 36.4 C L 98 20 129/78 12/05/19 06:00 92 17 117/77 92 Intake & Output: Intake & Output 12/02/19 12/03/19 12/04/19 12/05/19 23:59 23:59 23:59 23:59 Intake Total 1432 1056 Output Total 100 300 Balance 1332 756 - Objective General Appearance: positive: No acute distress, Alert Eyes Bilateral: positive: Normal inspection, PERRL, EOMI, Conjunctivae nml ENT: positive: ENT inspection nml Neck: positive: Nml inspection Respiratory: positive: No respiratory distress. negative: Wheezes, Rales, Rho nchi Cardiovascular: positive: No murmur, Irregularly irregular, Tachycardia. negative: Bradycardia, Systolic murmur Abdomen: positive: Non-tender, No distention. negative: Tenderness, Guarding, Rebound Skin: positive: Warm, Dry Extremities: positive: Full ROM, No pedal edema Neurologic/Psychiatric: positive: Motor nml, Other (Oriented to person, place, time. She initially thought she was at [facility] nonburning but then she corrected herself. She does feel like she is a little confused compared to her baseline.). negative: Disoriented to person, Disoriented to place, Disoriented to time - Lab Results Fish Bones: 12/05/19 16:06 12/05/19 05:17 Other Labs: Lab Results x24hrs 12/05/19 12/05/19 12/05/19 Range/Units 05:17 05:17 05:17 WBC 9.9 (4.8-10.8) x10^3/uL RBC 3.55 L (4.20-5.40) 10^6/uL Hgb 10.7 L (12.0-16.0) g/dL Hct 34.1 L (37.0-47.0) % MCV 96.1 (81.0-99.0) fL MCH 30.1 (27.0-31.0) pg MCHC 31.4 L (32.0-36.0) g/dL RDW 13.2 (12.0-15.0) % Plt Count 284 (130-450) 10^3/uL MPV 8.5 (7.9-10.8) fL Neut # (Auto) 7.0 H (1.5-6.6) 10^3/uL Lymph # (Auto) 1.5 (1.5-3.5) 10^3/uL [place]lin # (Auto) 1.1 H (0.0-1.0) 10^3/uL Eos # (Auto) 0.2 (0.0-0.7) 10^3/uL Baso # (Auto) 0.0 (0.0-0.1) 10^3/uL Absolute Nucleated RBC 0.00 x10^3/uL Nucleated RBC % 0.0 /100WBC PT 16.9 H (9.9-12.6) secs INR 1.6 H (0.8-1.2) Sodium 136 (135-145) mmol/L Potassium 3.5 (3.5-5.0) mmol/L Chloride 103 (101-111) mmol/L Carbon Dioxide 25 (21-32) mmol/L Anion Gap 8.0 (6-13) BUN 13 (6-20) mg/dL Creatinine 0.5 (0.4-1.0) mg/dL Estimated GFR (MDRD) 121 (>89) Glucose 131 H (70-100) mg/dL Calcium 8.5 (8.5-10.3) mg/dL Blood Type 12/04/19 12/04/19 12/04/19 Range/Units 17:02 17:02 13:24 WBC (4.8-10.8) x10^3/uL RBC (4.20-5.40) 10^6/uL Hgb 11.8 L (12.0-16.0) g/dL Hct 35.4 L (37.0-47.0) % MCV (81.0-99.0) fL MCH (27.0-31.0) pg MCHC (32.0-36.0) g/dL RDW (12.0-15.0) % Plt Count (130-450) 10^3/uL MPV (7.9-10.8) fL Neut # (Auto) (1.5-6.6) 10^3/uL Lymph # (Auto) (1.5-3.5) 10^3/uL [place] # (Auto) (0.0-1.0) 10^3/uL Eos # (Auto) (0.0-0.7) 10^3/uL Baso # (Auto) (0.0-0.1) 10^3/uL Absolute Nucleated RBC x10^3/uL Nucleated RBC % /100WBC PT 24.1 H (9.9-12.6) secs INR 2.3 H (0.8-1.2) Sodium (135-145) mmol/L Potassium (3.5-5.0) mmol/L Chloride (101-111) mmol/L Carbon Dioxide (21-32) mmol/L Anion Gap (6-13) BUN (6-20) mg/dL Creatinine (0.4-1.0) mg/dL Estimated GFR (MDRD) (>89) Glucose (70-100) mg/dL Calcium (8.5-10.3) mg/dL Blood Type A NEGATIVE ABX Reporting Has patient been on IV antibiotics over the past 48 hours?: Yes Assessment/Plan - Problem List (1) Community acquired pneumonia Impression: Imaging is concerning for a left lower lobe infiltrate. Given her cough and elevated white count she has been treated with ceftriaxone and azithromycin empirically. This may ultimately just be a pulmonary contusion given the trauma and associated rib fracture. Today is day 2 of antibiotics and we will look to discharge to oral antibiotics tomorrow. She will need 5 days of treatment. Qualifiers: Laterality: left Lung location: lower lobe of lung Qualified Code(s): J18.9 - Pneumonia, unspecified organism (2) Confusion Impression: She does admit to feeling confused and she did become disoriented at times when I was speaking with her. She has no focal deficits on exam but given her elevated INR on admission and her history of a subdural hematoma, we will obtain a CT of the head at this time to rule out a bleed. (3) Anemia due to blood loss Impression: Her hemoglobin has decreased since admission and it is 10.7 this morning. She denies any further evidence of bleeding since hospitalization. It is likely secondary to the hemoptysis she had been having. We will recheck her hemoglobin this afternoon to ensure there is no significant drop. If the hemoglobin is stable his afternoon then we will just check it on a daily basis. No indication for transfusion. (4) Cough with hemoptysis Impression: This may be secondary to pneumonia or pulmonary hemorrhage secondary to the rib fracture and supratherapeutic INR. There has been no further evidence of months's but hemoglobin did drop today. We will recheck a hemoglobin today and repeat imaging tomorrow to ensure the left lower lobe infiltrate is stable. (5) Supratherapeutic international normalized ratio (INR) Impression: It is unclear why her INR was supratherapeutic but this may have been due to poor diet as she denies any change in her medications. Her INR is now less than 2 after receiving vitamin K. We will resume Coumadin once there is no evidence of bleeding and hemoglobin has stabilized.b (6) Atrial fibrillation Impression: Her heart rate has been controlled for most of the day but increased this afternoon. Likely due to the fact that she has not received her diltiazem dose today. We will get this now and continue on her home metoprolol. We will resume Coumadin tomorrow if her hemoglobin remained stable with no evidence of bleeding. Continue to monitor on telemetry Qualifiers: Atrial fibrillation type: longstanding persistent Qualified Code(s): I48.11 - Longstanding persistent atrial fibrillation (7) Left rib fracture Impression: Stable. Continue current pain regimen and encourage spirometry use. Qualifiers: Encounter type: subsequent encounter Rib fracture type: single rib Fracture type: closed (8) History of seizures Impression: Stable. Continue home medications. (9) Personal history of DVT (deep vein thrombosis) Impression: We will resume the Coumadin once hemoglobin has stabilized and there is no further evidence of bleeding.
[2019-12-05] MEDS: diltiaZEM CD 120 MG CAPSULE PO SCH (16:16)
--- NOTE | 2019-12-05 16:51 | CT Report ---
PROCEDURE: HEAD WO INDICATIONS: Confusion. Fall. Elevated INR. TECHNIQUE: Noncontrast 4.5 mm thick angled axial sections acquired from the foramen magnum to the vertex. For r adiation dose reduction, the following was used: automated exposure control, adjustment of mA and/or kV according to patient size. COMPARISON: 03/08/2014 and 02/21/2014. FINDINGS: Image quality: Excellent. CSF spaces: Basal cisterns are patent. No extra-axial fluid collections. Ventricles are normal in size and shape. Brain: No intracranial bleeds or masses. There is cerebral volume loss for age, with resultant vent ricular and sulcal prominence. There are periventricular and deep white matter chronic small vessel ischemic changes. There is intracranial internal carotid artery atherosclerosis. Skull and face: Postsurgical changes compatible prior right [id number]-[id number] craniotomy stab le compared to prior exams. Visualized facial bones are intact, without suspicious lesions. Sinuses: Visualized sinuses and mastoids are clear. IMPRESSION: No acute intracranial disease process. Reviewed by: Kayla Martin MD, PhD on 12/05/2019 4:50 PM PDT Approved by: Kayla Martin MD, PhD on 12/05/2019 4:50 PM PDT Station ID: [id number]
[2019-12-06] MEDS: ACETAMINOPHEN 325 MG TABLET PO PRN (04:41)
[2019-12-06 05:45] LABS: BASOPHILS # (AUTO) 0.1 10^3/uL (0.0-0.1); BASOPHILS % (AUTO) 0.6 %; EOSINOPHILS # (AUTO) 0.2 10^3/uL (0.0-0.7); EOSINOPHILS % (AUTO) 2.3 %; HGB - HEMOGLOBIN 11.7 g/dL (12.0-16.0); LYMPHOCYTES # (AUTO) 1.4 10^3/uL (1.5-3.5); MEAN CORPUSCULAR HEMOGLOBIN 30.8 pg (27.0-31.0); MEAN CORPUSCULAR HGB CONC 32.4 g/dL (32.0-36.0); MEAN PLATELET VOLUME 8.6 fL (7.9-10.8); MONOCYTES % (AUTO) 10.8 %; NEUTROPHILS # (AUTO) 6.3 10^3/uL (1.5-6.6); NEUTROPHILS % (AUTO) 69.9 %; PLT - PLATELET COUNT 346 10^3/uL (130-450); RED CELL DISTRIBUTION WIDTH 13.3 % (12.0-15.0)
[2019-12-06 05:51] LABS: INR 1.6 (0.8-1.2)
[2019-12-06 06:07] LABS: CALCIUM 8.9 mg/dL (8.5-10.3); CREATININE 0.5 mg/dL (0.4-1.0)
[2019-12-06] MEDS ORDERED: LIDOCAINE PATCH 5% TOP PRN (07:49)
--- NOTE | 2019-12-06 07:57 | XRAY Report ---
PROCEDURE: Chest 1 View X-Ray INDICATIONS: Follow infiltrates/contusion. TECHNIQUE: One view of the chest was acquired. COMPARISON: 12/04/[address] chest dated 12/04/2019 FINDINGS: Surgical changes and devices: Left axillary clips are noted. Lungs and pleura: Stable appearance of diffuse, confluent opacities of the left mid and lower lung z ones correlating with left lower lobe consolidation seen on recent. Small left pleural effusion. No p neumothorax seen. Right lung appears clear. No new airspace disease identified. Mediastinum: Mediastinal contours appear normal. Heart size is normal. Bones and chest wall: No suspicious bony lesions. Mildly displaced acute left 10th rib fracture is b ashley seen on comparison CT. Overlying soft tissues appear unremarkable. IMPRESSION: 1. Stable appearance of diffuse/complex left mid and lower lung zone opacities with differential cons iderations including pneumonia, pulmonary contusion/laceration, or hemorrhage. No new airspace diseas e identified. 2. Acute left 10th rib fracture better seen on comparison CT. 3. No pneumothorax. Reviewed by: Bill Escobar MD on 12/06/2019 7:56 AM PDT Approved by: Bill Escobar MD on 12/06/2019 7:56 AM PDT Station ID: [id number]
[2019-12-06] MEDS: cefTRIAXone 2 GM in SODIUM CHLORIDE 0.9% MINIBAG 100 ML IV SCH (08:09)
[2019-12-06] MEDS: METOPROLOL SUCCINATE 50 MG TABLET PO SCH (08:09)
[2019-12-06] MEDS: SACCHAROMYCES BOULARDII 250 MG CAPSULE PO SCH (08:09)
[2019-12-06] MEDS: SERTRALINE 50 MG TABLET PO SCH (08:13)
[2019-12-06] MEDS: LORazepam 0.5 MG TABLET PO SCH (08:14)
[2019-12-06] MEDS: guaiFENesin 600 MG TABLET PO SCH (08:14)
[2019-12-06] MEDS: SODIUM CHLORIDE FLUSH 0.9% 10 ML SYRINGE IVP SCH (08:14)
[2019-12-06] MEDS: diltiaZEM CD 120 MG CAPSULE PO SCH (08:14)
--- NOTE | 2019-12-06 08:30 | XRAY Report ---
PROCEDURE: Chest 1 View X-Ray INDICATIONS: Follow up infiltrate/pulmonary contusion. TECHNIQUE: One view of the chest was acquired. COMPARISON: Chest radiograph from earlier same day approximately [address] dated 2019 FINDINGS: Surgical changes and devices: Left axillary surgical clips. Lungs and pleura: Redemonstration of diffuse, confluent opacities of the left mid and lower lung zone s correlating with left lower lobe consolidation seen on recent CT. Slight interval improvement in deisy ng aeration likely related to improved inspiratory effort. Small left pleural effusion. No pneumothor ax. Right lung is clear. Mediastinum: Mediastinal contours appear normal. Heart size is normal. Bones and chest wall: Acute left 10th rib fracture is better seen on comparison CT. No suspicious isma ny lesions. Overlying soft tissues appear unremarkable. IMPRESSION: Slight interval improvement in lung aeration of the left hemithorax likely related to improved inspir atory effort. Otherwise, no significant change in diffuse/confluent left mid and lower lung zone opac ities with differential considerations including pneumonia, pulmonary contusion/laceration, or hemorr van. No acute left 10th rib fracture is better seen on comparison CT. No pneumothorax. Reviewed by: Bill Escobar MD on 12/06/2019 8:28 AM PDT Approved by: Bill Escobar MD on 12/06/2019 8:28 AM PDT Station ID: [id number]
[2019-12-06] MEDS: lamoTRIgine 100 MG TABLET PO SCH (08:44)
[2019-12-06] MEDS ORDERED: diltiaZEM CD 120 MG CAPSULE PO SCH (09:00)
[2019-12-06] MEDS ORDERED: FUROSEMIDE 20 MG TABLET PO SCH (09:00)
[2019-12-06] MEDS: AZITHROMYCIN INJ 500 MG in SODIUM CHLORIDE 0.9% 250 ML IV SCH (09:34)
--- NOTE | 2019-12-06 10:46 | Discharge Plan ---
Discharge Plan Problem Reviewed?: Yes Disposition: Home, Self Care Condition: Stable Prescriptions: cefUROXime axetiL [Ceftin] 500 mg PO BID #8 tablet Diet: Regular Activity Restrictions: Activity as Tolerated Shower Restrictions: No Driving Restrictions: No Health Concerns: You were seen in the hospital because you had a rib fracture this may have caused you to have a pneumonia or possibly a lung contusion. Your INR was also significantly elevated which may have caused you to cough up blood. Repeat chest x-ray has been stable and your blood counts have also remained stable. Plan of Treatment: Please take the antibiotics as prescribed twice a day for 2 more days. You can resume your Coumadin at 5 mg every day. Please have your INR checked in 2 to 3 days with your primary care provider. Assessment: Patient expressed understanding of the treatment plan. Additional Instructions or Follow Up instructions: Please follow-up with your primary care provider this week. Please return to the emergency department if you develop any fevers, chills, dyspnea, chest pain or evidence of bleeding. No Smoking: If you smoke, Please STOP! Call for help. Follow-up with: Jenny Gregg ARNP, JANITORIAL MANAGER-C [Primary Care Provider] -
--- NOTE | 2019-12-06 10:53 | DISCHARGE SUMMARY ---
"Discharge Summary Admit Date: 12/04/19 Discharge Date: 12/06/19 Discharging Provider: Jasen Kennedy Primary Care Provider: Jenny Gregg Code Status: Attempt Resuscitation Condition at Discharge: Stable Discharge Disposition: 01 Home, Self Care - DIAGNOSES Admission Diagnoses: Supratherapeutic INR Pneumonia Rib fracture Atrial fibrillation Hypertension History of DVT History of seizures Discharge Diagnoses with Status of Each Condition: Community acquired pneumonia - stable. Confusion - resolved. Anemia due to blood loss - stable. Cough with hemoptysis - resolved. Supratherapeutic INR - resolved. Atrial fibrillation - stable. Left rib fracture - stable. Seizures - stable. History of DVT - stable. - HPI History of Present Illness: H&P per Dr. Hoang: Patient is 74-year-old female with history of seizures, hypertension, atrial fibrillation on Coumadin, history of DVT PE and history of breast cancer who presented to the ED with hemoptysis. Sometime last week she careened into a dresser at home. She states she had been doing well until the hemoptysis today. In the ED work-up included an INR which showed that it was greater than 10. Further work-up also included CT chest whic h confirmed an acute Left 10thrib fracture and Left lower lobe consolidation suggestive of pneumonia. Consequently she was presented for admission. Upon arriving to the medical floor, she sat on her bed and immediately heard a popping sound. This was followed by extreme pain with the slightest movement. The pain was located on the side of the rib fracture. She denied chest pain. She denied dyspnea but had worsening pain on the side of the rib fracture with inspiration. She denied abdominal pain, nausea, vomiting, fever or chills. The rest of her history is unremarkable - CONSULTS | PROCEDURES Procedures: Chest CT on December 03 showed a mildly displaced left acute rib fracture of the 10th rib. Small left pleural effusion without evidence of a hemothorax. Left lower lobe consolidation which could be pneumonia or pulmonary contusion. Head CT December 04 showed no acute intracranial abnormalities. There is evidence of a prior craniotomy. Chest x-ray December 05 showed stable appearance of a diffuse left mid and lower lung zone opacity which could be pneumonia or pulmonary contusion. There is also evidence of an acute left 10th rib fracture. No pneumothorax. - HOSPITAL COURSE Hospital Course: Patient was admitted to the floor for supratherapeutic INR associate with hemoptysis and possible pneumonia. She was treated with ceftriaxone and azithromycin IV. She was given vitamin K and her INR improved to 1.6 and the following morning. Her hemoptysis had resolved. Her hemoglobin did decrease s lightly but has remained stable since hospitalization. The day following admission, there was concern that she had intermittent confusion in the evening and so a CT of the head was obtained which was unremarkable. The patient showed no further evidence of confusion and she was alert and oriented and understood why she was in the hospital. It was felt that she could have possibly been sundowning which may have caused the confusion. Her hemoglobin remained stable and a repeat chest x-ray showed a stable left lower lobe infiltrate/opacity which was felt to be either pneumonia or pulmonary contusion. Given her hemoglobin had been stable and she had no hemoptysis, it was felt she was stable for discharge. She was discharged on Ceftin 500 mg twice daily to complete 5 days of therapy for possible pneumonia. It was not clear what caused her to have an elevated supratherapeutic INR given she had no changes in her medication although she did report poor oral intake over the past week. She was asked to resume her Coumadin at 5 mg in the evening and to have an INR checked in 2 to 3 days. - ALLERGIES Allergies/Adverse Reactions: Allergies Allergy/AdvReac Type Severity Reaction Status Date / Time hydromorphone HCl * Allergy Unknown Verified 12/04/19 10:28 [From Dilaudid] - MEDICATIONS Home Medications: Ambulatory Orders Medication Instructions Recorded Confirmed Metoprolol Succinate 100 tab DAILY 02/21/14 12/04/19 LORazepam [Lorazepam] 0.5 mg PO BID 08/03/14 12/04/19 Diltiazem HCl [Cardizem LA] 120 mg PO DAILY 12/04/19 12/04/19 Furosemide [Lasix] 20 mg PO DAILY 12/04/19 12/04/19 Metoprolol Succinate 50 mg PO QPM 12/04/19 12/04/19 Potassium Chloride 20 meq PO DAILY 12/04/19 12/04/19 Sertraline HCl 100 mg PO DAILY 12/04/19 12/04/19 lamoTRIgine [LaMICtal] 150 mg PO BID 12/04/19 12/04/19 Warfarin [Coumadin] 5 mg PO QDDINNER #0 12/06/19 12/04/19 cefUROXime axetiL [Ceftin] 500 mg PO BID #8 tablet 12/06/19 - PHYSICAL EXAM AT DISCHARGE General Appearance: positive: No acute distress, Alert Eyes Bilateral: positive: Normal inspection, Conjunctivae nml ENT: positive: ENT inspection nml Neck: positive: Nml inspection Respiratory: positive: No respiratory distress, Other. negative: Wheezes, Rales (No abnormal lung sounds noted.) Cardiovascular: positive: Irregularly irregular. negative: Tachycardia, Bradycardia, Systolic murmur Abdomen: positive: Non-tender, No distention. negative: Tenderness, Guarding, Rebound Skin: positive: No rash, Warm, Dry Extremities: positive: Full ROM, No pedal edema Neurologic/Psychiatric: positive: Oriented x3, Motor nml. negative: Disoriented to person, Disoriented to place, Disoriented to time, Facial droop, Slurred/abnml speech Physical Exam Other/Comments: Vital Signs - 24 hr 12/05/19 12/05/19 12/06/19 20:18 20:45 00:02 Temperature 36.8 C 36.7 C Heart Rate [ 130 H 126 H 111 H Monitoring electrodes] Respiratory 18 18 Rate Blood Pressure 141/95 H [Left Brachial artery] Blood Pressure 127/86 H 123/80 [Right Brachial artery] O2 Saturation 93 94 12/06/19 12/06/19 12/06/19 04:43 07:34 13:00 Temperature 36.3 C L 36.7 C 36.6 C Heart Rate [ 111 H 92 93 Monitoring electrodes] Respiratory 20 22 20 Rate Blood Pressure [Left Brachial artery] Blood Pressure 136/89 H 128/83 H 109/73 [Right Brachial artery] O2 Saturation 95 94 93 Oxygen O2 Source Room air - LABS Result Diagrams: 12/06/19 05:00 12/06/19 05:00 Other Lab Results: Laboratory Results - last 24 hr 12/06/19 12/06/19 12/06/19 05:00 05:00 05:00 WBC 9.0 RBC 3.80 L Hgb 11.7 L Hct 36.1 L MCV 95.0 MCH 30.8 MCHC 32.4 RDW 13.3 Plt Count 346 MPV 8.6 Neut # (Auto) 6.3 Lymph # (Auto) 1.4 L Johnson # (Auto) 1.0 Eos # (Auto) 0.2 Baso # (Auto) 0.1 Absolute Nucleated RBC 0.00 Nucleated RBC % 0.0 PT 17.0 H INR 1.6 H Sodium 137 Potassium 3.7 Chloride 104 Carbon Dioxide 23 Anion Gap 10.0 BUN 11 Creatinine 0.5 Estimated GFR (MDRD) 121 Glucose 104 H Calcium 8.9 - DIAGNOSTIC IMAGING Diagnostic Imaging Results: Final report reviewed - FOLLOW UP Follow Up: Is asked to follow-up with her primary care provider in 1 week and to have her INR checked in 2 to 3 days. - TIME SPENT Time Spent in Discharge (Minutes): 33"
[2019-12-06 13:56] VITALS: BP 109/73
== END 2019-12-06 13:40 | disposition home or self-care (01) | DRG 813 ==
LOC: ED 10:03 → MS3 15:35
PROVIDERS: ADMIT Internal Medicine; ATTEND Internal Medicine
DX: D68.32 Hemorrhagic disorder due to extrinsic circulating anticoagulants (principal); J18.9 Pneumonia, unspecified organism; R04.2 Hemoptysis; I48.11 Longstanding persistent atrial fibrillation; T45.515A Adverse effect of anticoagulants, initial encounter; S22.32XD Fracture of one rib, left side, subsequent encounter for fracture with routine healing; W18.30XD Fall on same level, unspecified, subsequent encounter; D50.0 Iron deficiency anemia secondary to blood loss (chronic); R41.0 Disorientation, unspecified; I10 Essential (primary) hypertension; F32.9 Major depressive disorder, single episode, unspecified; R56.9 Unspecified convulsions; Z96.649 Presence of unspecified artificial hip joint; Z79.01 Long term (current) use of anticoagulants; Z79.899 Other long term (current) drug therapy; Z86.711 Personal history of pulmonary embolism; Z86.718 Personal history of other venous thrombosis and embolism; Z87.891 Personal history of nicotine dependence
CPT/HCPCS: 36415; 70450; 71045; 71101; 71260; 80048; 80053; 83690; 83880; 84484; 85014; 85018; 85025; 85610; 86900; 86901; 96361; 96374; 96375; 99284; 99285; A9270; P9017; Q9967

== ENCOUNTER 2019-12-09 08:00 | Outpatient (CLI) | payer MEDICARE, OTHER | END 2019-12-09 23:59 | disposition home or self-care (01) | LOC: LAB.WCP 08:00 | PROVIDERS: ATTEND Nurse Practitioner | DX: Z79.01 Long term (current) use of anticoagulants (principal) ==

== ENCOUNTER 2019-12-17 08:00 | Outpatient (CLI) | payer MEDICARE, OTHER | END 2019-12-17 23:59 | disposition home or self-care (01) | LOC: LAB.WCP 08:00 | PROVIDERS: ATTEND Nurse Practitioner | DX: Z79.01 Long term (current) use of anticoagulants (principal) ==

== ENCOUNTER 2019-12-31 08:00 | Outpatient (CLI) | payer MEDICARE, OTHER | END 2019-12-31 23:59 | disposition home or self-care (01) | LOC: LAB.WCP 08:00 | PROVIDERS: ATTEND Physician Assistant | DX: Z79.01 Long term (current) use of anticoagulants (principal) ==

== ENCOUNTER 2020-01-07 08:00 | Outpatient (CLI) | payer MEDICARE, OTHER | END 2020-01-07 23:59 | disposition home or self-care (01) | LOC: LAB.WCP 08:00 | PROVIDERS: ATTEND Nurse Practitioner | DX: Z79.01 Long term (current) use of anticoagulants (principal) ==

== ENCOUNTER 2020-03-31 08:00 | Outpatient (CLI) | payer MEDICARE, OTHER | END 2020-03-31 23:59 | disposition home or self-care (01) | LOC: LAB.WCP 08:00 | PROVIDERS: ATTEND Nurse Practitioner | DX: Z79.01 Long term (current) use of anticoagulants (principal) ==

== ENCOUNTER 2020-04-14 08:00 | Outpatient (CLI) | payer MEDICARE, OTHER | END 2020-04-14 23:59 | disposition home or self-care (01) | LOC: LAB.WCP 08:00 | PROVIDERS: ATTEND Family Medicine | DX: I48.91 Unspecified atrial fibrillation (principal); Z79.01 Long term (current) use of anticoagulants ==

== ENCOUNTER 2020-04-19 08:00 | Outpatient (CLI) | payer MEDICARE, OTHER | END 2020-04-19 23:59 | disposition home or self-care (01) | LOC: LAB.N 08:00 | PROVIDERS: ATTEND Family Medicine | DX: I48.91 Unspecified atrial fibrillation (principal); Z79.01 Long term (current) use of anticoagulants ==

== ENCOUNTER 2020-05-28 08:00 | Outpatient (CLI) | payer MEDICARE, OTHER | END 2020-05-28 23:59 | disposition home or self-care (01) | LOC: LAB.WCP 08:00 | PROVIDERS: ATTEND Nurse Practitioner | DX: I48.91 Unspecified atrial fibrillation (principal); I26.99 Other pulmonary embolism without acute cor pulmonale; Z79.01 Long term (current) use of anticoagulants ==

== ENCOUNTER 2020-05-31 08:00 | Outpatient (CLI) | payer MEDICARE, OTHER | END 2020-06-02 23:59 | disposition home or self-care (01) | LOC: LAB.WCP 08:00 | PROVIDERS: ATTEND Nurse Practitioner | DX: I48.91 Unspecified atrial fibrillation (principal); Z79.01 Long term (current) use of anticoagulants ==

== ENCOUNTER 2020-06-07 08:00 | Outpatient (CLI) | payer MEDICARE, OTHER | END 2020-06-07 23:59 | disposition home or self-care (01) | LOC: LAB.WCP 08:00 | PROVIDERS: ATTEND Nurse Practitioner | DX: I48.91 Unspecified atrial fibrillation (principal); I26.99 Other pulmonary embolism without acute cor pulmonale; Z79.01 Long term (current) use of anticoagulants ==

== ENCOUNTER 2020-06-10 08:00 | Outpatient (CLI) | payer MEDICARE, OTHER ==
[2020-06-10 13:13] LABS: BASOPHILS # (AUTO) 0.1 10^3/uL (0.0-0.1); BASOPHILS % (AUTO) 0.6 %; EOSINOPHILS # (AUTO) 0.2 10^3/uL (0.0-0.7); EOSINOPHILS % (AUTO) 2.3 %; HCT - HEMATOCRIT 41.4 % (37.0-47.0); HGB - HEMOGLOBIN 13.4 g/dL (12.0-16.0); LYMPHOCYTES # (AUTO) 1.5 10^3/uL (1.5-3.5); LYMPHOCYTES % (AUTO) 16.8 %; MEAN CORPUSCULAR HEMOGLOBIN 31.2 pg (27.0-31.0); MEAN CORPUSCULAR HGB CONC 32.4 g/dL (32.0-36.0); MEAN CORPUSCULAR VOLUME 96.5 fL (81.0-99.0); MONOCYTES # (AUTO) 0.8 10^3/uL (0.0-1.0); MONOCYTES % (AUTO) 8.6 %; NEUTROPHILS # (AUTO) 6.5 10^3/uL (1.5-6.6); NEUTROPHILS % (AUTO) 71.4 %; PLT - PLATELET COUNT 206 10^3/uL (130-450); RED BLOOD COUNT 4.29 10^6/uL (4.20-5.40); WHITE BLOOD COUNT 9.1 x10^3/uL (4.8-10.8)
[2020-06-10 13:26] LABS: ALBUMIN 4.3 g/dL (3.2-5.5); ALBUMIN/GLOBULIN RATIO 1.9 (1.0-2.2); ALKALINE PHOSPHATASE 86 IU/L (42-121); ALT ALANINE AMINOTRANSFERASE 23 IU/L (10-60); AST ASPARTATE AMINOTRANSFERASE 25 IU/L (10-42); BILIRUBIN,TOTAL 0.5 mg/dL (0.2-1.0); BUN - BLOOD UREA NITROGEN 19 mg/dL (6-20); CALCIUM 9.4 mg/dL (8.5-10.3); CARBON DIOXIDE - CO2 28 mmol/L (21-32); CHLORIDE 102 mmol/L (101-111); CHOL/HDL RATIO 3.5 (<4.4); CHOLESTEROL 200 mg/dL; CREATININE 0.6 mg/dL (0.4-1.0); GFR - MDRD 98 (>89); GLUCOSE 98 mg/dL (70-100); HDL CHOLESTEROL 57 mg/dL; LDL CHOLESTEROL,CALCULATED 110 mg/dL; LDL/HDL RATIO 1.9 (<4.4); SODIUM 138 mmol/L (135-145); TOTAL PROTEIN 6.6 g/dL (6.7-8.2); TRIGLYCERIDES 164 mg/dL; VLDL CHOLESTEROL 33 mg/dL
[2020-06-10 13:38] LABS: THYROID STIMULATING HORMONE 2.68 uIU/mL (0.34-5.60)
== END 2020-06-10 23:59 | disposition home or self-care (01) ==
LOC: LAB.WCP 08:00
PROVIDERS: ATTEND Nurse Practitioner
DX: Z00.00 Encounter for general adult medical examination without abnormal findings (principal); I10 Essential (primary) hypertension; Z79.899 Other long term (current) drug therapy; I48.91 Unspecified atrial fibrillation; Z79.01 Long term (current) use of anticoagulants; G40.109 Localization-related (focal) (partial) symptomatic epilepsy and epileptic syndromes with simple partial seizures, not intractable, without status epilepticus
CPT/HCPCS: 36415; 80053; 80061; 80175; 83721; 84443; 85025

== ENCOUNTER 2020-06-21 08:00 | Outpatient (CLI) | payer MEDICARE, OTHER | END 2020-06-21 23:59 | disposition home or self-care (01) | LOC: LAB.WCP 08:00 | PROVIDERS: ATTEND Internal Medicine | DX: I48.91 Unspecified atrial fibrillation (principal); I26.99 Other pulmonary embolism without acute cor pulmonale; Z79.01 Long term (current) use of anticoagulants ==

== ENCOUNTER 2020-07-23 08:00 | Outpatient (CLI) | payer MEDICARE, OTHER | END 2020-07-23 23:59 | disposition home or self-care (01) | LOC: LAB.WCP 08:00 | PROVIDERS: ATTEND Internal Medicine | DX: I48.91 Unspecified atrial fibrillation (principal); I26.99 Other pulmonary embolism without acute cor pulmonale; Z79.01 Long term (current) use of anticoagulants ==

== ENCOUNTER 2020-07-30 08:00 | Outpatient (CLI) | payer MEDICARE, OTHER | END 2020-07-30 23:59 | disposition home or self-care (01) | LOC: LAB.WCP 08:00 | PROVIDERS: ATTEND Internal Medicine | DX: I48.91 Unspecified atrial fibrillation (principal); Z79.01 Long term (current) use of anticoagulants ==

== ENCOUNTER 2020-08-13 08:00 | Outpatient (CLI) | payer MEDICARE, OTHER | END 2020-08-13 23:59 | disposition home or self-care (01) | LOC: LAB.WCP 08:00 | PROVIDERS: ATTEND Internal Medicine | DX: I48.91 Unspecified atrial fibrillation (principal); Z79.01 Long term (current) use of anticoagulants ==

== ENCOUNTER 2020-08-27 08:00 | Outpatient (CLI) | payer MEDICARE, OTHER | END 2020-08-27 23:59 | disposition home or self-care (01) | LOC: LAB.WCP 08:00 | PROVIDERS: ATTEND Internal Medicine | DX: I48.91 Unspecified atrial fibrillation (principal); Z79.01 Long term (current) use of anticoagulants; I26.99 Other pulmonary embolism without acute cor pulmonale ==

== ENCOUNTER 2020-09-28 07:23 | Outpatient (CLI) | payer MEDICARE, OTHER | END 2020-09-28 07:24 | disposition home or self-care (01) | LOC: DI 07:23 | PROVIDERS: ATTEND Internal Medicine Cardiovascular Disease | DX: I48.91 Unspecified atrial fibrillation (principal); I07.1 Rheumatic tricuspid insufficiency; I87.8 Other specified disorders of veins | CPT/HCPCS: 93306 ==

== ENCOUNTER 2020-09-28 09:39 | Outpatient (CLI) | payer MEDICARE, OTHER ==
--- NOTE | 2020-09-28 11:28 | DEXA Report ---
PROCEDURE: Dexa Spine and/or Hip INDICATIONS: MENOPAUSE TECHNIQUE: Dual energy x-ray absorptiometry (DXA) was performed on a [employer] System. Regions measur ed are the AP Spine, femoral neck, and if needed forearm. Forearm utilizing secondary to bilateral hi p arthroplasties. COMPARISON: None. FINDINGS: Lumbar Spine: Bone Mineral Density 0.952 g/cm/cm,T score -2.1, osteopenia Left forearm: Bone Mineral Density 0.485 g/cm/cm, T score -4.5, osteoporosis. (T score greater or equal to -1.0: NORMAL) (T score from -1.1 to -2.4: OSTEOPENIA) (T score less than or equal to -2.5 to: OSTEOPOROSIS) Impression: Osteoporosis. Patients with diagnosis of osteoporosis or osteopenia should have regular bone mineral density assess ment. For those eligible for Medicare, routine testing is allowed once every 2 years. Testing frequ ency can be increased for patients who have rapidly progressing disease or for those who are receivin g medical therapy to restore bone mass. Reviewed by: Kayla Martin MD, PhD on 09/28/2020 11:26 AM PDT Approved by: Kayla Martin MD, PhD on 09/28/2020 11:26 AM PDT Station ID: [id number]
== END 2020-09-28 09:40 | disposition home or self-care (01) ==
LOC: DI 09:39
PROVIDERS: ATTEND Family Medicine
DX: Z78.0 Asymptomatic menopausal state (principal); M81.8 Other osteoporosis without current pathological fracture; I48.91 Unspecified atrial fibrillation; I07.1 Rheumatic tricuspid insufficiency; I87.8 Other specified disorders of veins; Z96.643 Presence of artificial hip joint, bilateral
CPT/HCPCS: 93306

== ENCOUNTER 2020-12-29 10:56 | Emergency (ER) | payer MEDICARE, OTHER ==
--- NOTE | 2020-12-29 12:11 | XRAY Report ---
PROCEDURE: Chest 1 View X-Ray INDICATIONS: Chest pain TECHNIQUE: One view of the chest was acquired. COMPARISON: December 06, 2019 FINDINGS: SUPPORT DEVICES: None. LUNGS/PLEURA: No focal consolidation, pleural effusion or space-occupying pneumothorax. MEDIASTINUM: The cardiac silhouette is upper limits of normal. No superior mediastinal widening. BONES/SOFT TISSUES: No acute abnormality. Left axillary/chest wall surgical clips. IMPRESSION: 1.No acute cardiopulmonary abnormality. Reviewed by: Joel Loo MD on 12/29/2020 12:09 PM PDT Approved by: Joel Loo MD on 12/29/2020 12:09 PM PDT Station ID: [id number]
[2020-12-29 12:29] LABS: ALBUMIN 4.4 g/dL (3.2-5.5); ALBUMIN/GLOBULIN RATIO 1.6 (1.0-2.2); BILIRUBIN,TOTAL 1.2 mg/dL (0.2-1.0); CALCIUM 9.8 mg/dL (8.5-10.3); CREATININE 0.7 mg/dL (0.4-1.0); POTASSIUM 4.1 mmol/L (3.5-5.0); TOTAL PROTEIN 7.2 g/dL (6.7-8.2)
[2020-12-29 12:38] LABS: BASOPHILS % (AUTO) 0.6 %; EOSINOPHILS # (AUTO) 0.2 10^3/uL (0.0-0.7); EOSINOPHILS % (AUTO) 2.7 %; HGB - HEMOGLOBIN 13.4 g/dL (12.0-16.0); LYMPHOCYTES # (AUTO) 1.5 10^3/uL (1.5-3.5); LYMPHOCYTES % (AUTO) 23.6 %; MEAN CORPUSCULAR HEMOGLOBIN 32.5 pg (27.0-31.0); MEAN CORPUSCULAR HGB CONC 32.7 g/dL (32.0-36.0); MEAN CORPUSCULAR VOLUME 99.5 fL (81.0-99.0); MEAN PLATELET VOLUME 8.6 fL (7.9-10.8); MONOCYTES # (AUTO) 0.6 10^3/uL (0.0-1.0); MONOCYTES % (AUTO) 9.6 %; NEUTROPHILS # (AUTO) 3.9 10^3/uL (1.5-6.6); NEUTROPHILS % (AUTO) 63.2 %; PLT - PLATELET COUNT 190 10^3/uL (130-450); RED BLOOD COUNT 4.12 10^6/uL (4.20-5.40); RED CELL DISTRIBUTION WIDTH 13.1 % (12.0-15.0); WHITE BLOOD COUNT 6.2 x10^3/uL (4.8-10.8)
--- NOTE | 2020-12-29 12:46 | ED Physician Documentation ---
PD HPI CHEST PAIN - Stated complaint Stated Complaint: CHEST PX/SOA - Chief complaint Chief Complaint: Cardiac - History obtained from History obtained from: Patient - History of Present Illness Timing - onset: How many weeks ago (several weeks) Timing - onset during: Light activity, Exertion Timing - duration: Minutes (3-5) Timing - details: Gradual onset, Intermittant Pain level max: 2 Pain level now: 0 Quality: Pressure, Tightness Location: Substernal Radiation: No: Jaw, Neck, Back, Abdominal, Left upper extremity, Right upper extremity Improved by: Rest Worsened by: Exertion Associated symptoms: Shortness of air. No: Diaphoresis, Nausea, Vomiting, Feeling faint / dizzy, General Weakness, Palpitations, Cough - Additional information Additional information: 75-year-old female presents to the emergency department with ongoing chest pain for the past several weeks. Seems to be mostly exertional. She states she used to be able to walk several 100 feet without any difficulty, now she cannot walk more than about 50 to 75 feet without developing chest pain and having to stop. She stops and rests and it resolves within a few minutes. She sees Dr. Fleming at [facility] for cardiology. Review of Systems Ten Systems: 10 systems reviewed and negative Constitutional: denies: Fever, Chills Nose: denies: Rhinorrhea / runny nose, Congestion Cardiac: denies: Palpitations Respiratory: denies: Cough, Wheezing GI: denies: Abdominal Pain, Nausea, Vomiting, Diarrhea Skin: denies: Rash Musculoskeletal: denies: Neck pain, Back pain Neurologic: denies: Headache PD PAST MEDICAL HISTORY - Past Medical History Past Medical History: Yes Cardiovascular: None, Hypertension, Deep vein thrombosis, Pulmonary embolism Respiratory: None Neuro: None Endocrine/Autoimmune: None FIELD EDUCATION COORDINATOR: Breast cancer : None HEENT: None Psych: Depression Musculoskeletal: Fatigue Derm: None - Past Surgical History Past Surgical History: Yes Ortho: Hip replacement /FIELD EDUCATION COORDINATOR: Mastectomy Cardiovascular: AAA Neuro: Craniotomy, Other HEENT: Tonsil/Adenoidectomy - Present Medications Home Medications: Ambulatory Orders Medication Instructions Recorded Confirmed Metoprolol Succinate 100 tab DAILY 02/21/14 12/04/19 LORazepam [Lorazepam] 0.5 mg PO BID 08/03/14 12/04/19 Diltiazem HCl [Cardizem LA] 120 mg PO DAILY 12/04/19 12/04/19 Furosemide [Lasix] 20 mg PO DAILY 12/04/19 12/04/19 Metoprolol Succinate 50 mg PO QPM 12/04/19 12/04/19 Potassium Chloride 20 meq PO DAILY 12/04/19 12/04/19 Sertraline HCl 100 mg PO DAILY 12/04/19 12/04/19 lamoTRIgine [LaMICtal] 150 mg PO BID 12/04/19 12/04/19 Warfarin [Coumadin] 5 mg PO QDDINNER #0 12/06/19 12/04/19 cefUROXime axetiL [Ceftin] 500 mg PO BID #8 tablet 12/06/19 - Allergies Allergies/Adverse Reactions: Allergies Allergy/AdvReac Type Severity Reaction Status Date / Time hydromorphone HCl * Allergy Unknown Verified 12/29/20 11:17 [From Dilaudid] - Social History Does the pt smoke?: No Smoking Status: Former smoker Does the pt drink ETOH?: No Does the pt have substance abuse?: No - Immunizations Immunizations are current?: Yes - POLST Patient has POLST: Yes POLST Status: Full Code PD ED PE NORMAL - Vitals Vital signs reviewed: Yes - General General: Alert and oriented X 3, No acute distress, Well developed/nourished - HEENT HEENT: PERRL, Moist mucous membranes - Neck Neck: Supple, no meningeal sign - Cardiac Cardiac: RRR, Strong equal pulses - Respiratory Respiratory: No respiratory distress, Clear bilaterally - Abdomen Abdomen: Soft, Non tender, Non distended - Derm Derm: Warm and dry - Extremities Extremities: No edema, No calf tenderness / cord - Neuro Neuro: Alert and oriented X 3 - Psych Psych: Normal mood, Normal affect Results - Vitals Vitals: Vital Signs - 24 hr 12/29/20 12/29/20 12/29/20 11:09 11:56 12:01 Temperature 36.4 C L Heart Rate 88 78 Respiratory 20 15 Rate Blood Pressure 120/75 124/80 O2 Saturation 98 95 12/29/20 12/29/20 12/29/20 12:53 13:09 13:38 Temperature Heart Rate 79 90 79 Respiratory 27 H 16 19 Rate Blood Pressure 105/94 H 126/86 H 131/90 H O2 Saturation 95 95 99 12/29/20 12/29/20 12/29/20 14:00 15:10 16:18 Temperature Heart Rate 73 78 82 Respiratory 15 18 14 Rate Blood Pressure 131/90 H 150/86 H 142/92 H O2 Saturation 98 98 95 12/29/20 12/29/20 12/29/20 16:51 18:00 18:30 Temperature Heart Rate 90 82 79 Respiratory Rate Blood Pressure 122/68 116/92 H O2 Saturation 100 12/29/20 12/29/20 12/29/20 19:00 19:30 20:00 Temperature Heart Rate 78 75 83 Respiratory 16 15 Rate Blood Pressure 120/84 H 128/85 H 127/87 H O2 Saturation 100 99 12/29/20 12/29/20 12/29/20 20:30 21:00 21:30 Temperature Heart Rate 87 86 85 Respiratory 18 21 19 Rate Blood Pressure 135/96 H 130/73 131/72 H O2 Saturation 96 96 97 12/29/20 12/29/20 12/29/20 22:00 22:07 22:30 Temperature 36.5 C Heart Rate 85 116 H 77 Respiratory 21 23 20 Rate Blood Pressure 138/90 H 138/90 H 144/90 H O2 Saturation 97 98 96 Oxygen O2 Source Room air - EKG (time done) 1125 Rate: Rate (enter#) (79) Rhythm: Atrial flutter [place]: Normal QRS: Normal Ischemia: Normal ST segments - Labs Labs: Laboratory Tests 12/29/20 12/29/20 12/29/20 12:07 12:07 12:34 WBC 6.2 RBC 4.12 L Hgb 13.4 Hct 41.0 MCV 99.5 H MCH 32.5 H MCHC 32.7 RDW 13.1 Plt Count 190 MPV 8.6 Neut # (Auto) 3.9 Lymph # (Auto) 1.5 [place] # (Auto) 0.6 Eos # (Auto) 0.2 Baso # (Auto) 0.0 Absolute Nucleated RBC 0.00 Nucleated RBC % 0.0 Sodium 141 Potassium 4.1 Chloride 104 Carbon Dioxide 28 Anion Gap 9.0 BUN 27 H Creatinine 0.7 Estimated GFR (MDRD) 82 L Glucose 94 Calcium 9.8 Total Bilirubin 1.2 H AST 23 ALT 21 Alkaline Phosphatase 87 Troponin I High Sens 6.8 Total Protein 7.2 Albumin 4.4 Globulin 2.8 Albumin/Globulin Ratio 1.6 Lipase 92 H Nasal Adenovirus (PCR) Nasal B. parapertussis DNA (PCR) Nasal Coronavir 229E PCR Nasal Coronavir HKU1 PCR Nasal Coronavir NL63 PCR Nasal Coronavir OC43 PCR Nasal Enterovir/Rhinovir PCR Nasal Influenza B PCR Nasal Influenza A PCR Nasal Parainfluen 1 PCR Nasal Parainfluen 2 PCR Nasal Parainfluen 3 PCR Nasal Parainfluen 4 PCR Nasal RSV (PCR) Nasal B.pertussis DNA PCR Nasal C.pneumoniae (PCR) [place] Human Metapneumo PCR Nasal M.pneumoniae (PCR) Nasal SARS-CoV-2 (PCR) 12/29/20 13:20 WBC RBC Hgb Hct MCV MCH MCHC RDW Plt Count MPV Neut # (Auto) Lymph # (Auto) [place] # (Auto) Eos # (Auto) Baso # (Auto) Absolute Nucleated RBC Nucleated RBC % Sodium Potassium Chloride Carbon Dioxide Anion Gap BUN Creatinine Estimated GFR (MDRD) Glucose Calcium Total Bilirubin AST ALT Alkaline Phosphatase Troponin I High Sens Total Protein Albumin Globulin Albumin/Globulin Ratio Lipase Nasal Adenovirus (PCR) NOT DETECTED Nasal B. parapertussis DNA (PCR) NOT DETECTED Nasal Coronavir 229E PCR NOT DETECTED Nasal Coronavir HKU1 PCR NOT DETECTED Nasal Coronavir NL63 PCR NOT DETECTED Nasal Coronavir OC43 PCR NOT DETECTED Nasal Enterovir/Rhinovir PCR NOT DETECTED Nasal Influenza B PCR NOT DETECTED Nasal Influenza A PCR NOT DETECTED Nasal Parainfluen 1 PCR NOT DETECTED Nasal Parainfluen 2 PCR NOT DETECTED Nasal Parainfluen 3 PCR NOT DETECTED Nasal Parainfluen 4 PCR NOT DETECTED Nasal RSV (PCR) NOT DETECTED Nasal B.pertussis DNA PCR NOT DETECTED Nasal C.pneumoniae (PCR) NOT DETECTED [place] Human Metapneumo PCR NOT DETECTED Nasal M.pneumoniae (PCR) NOT DETECTED Nasal SARS-CoV-2 (PCR) NOT DETECTED - Rads (name of study) cxr Radiology: Final report received, EMP read contemporaneously, See rad report (No acute abnormality) PD MEDICAL DECISION MAKING - ED course Complexity details: reviewed results, re-evaluated patient, considered differential, d/w patient, d/w agricultural consultant ED course: 75-year-old female with what sounds like worsening exertional angina. Accelerating in nature. Discussed the case with her etl analyst developer, recommends admission for cardiac catheterization. There are no beds available at [facility]. There is no wait list available. There are no beds available at [facility] in [facility] in [place], [facility], [facility], [facility], [facility] or [facility]. I did discuss the case with Dr. Jade Casarez cardiology at the [facility] at 1445, he will be placed on the wait list. Also discussed the case with Dr. Polanco, [facility] at 1500 and also placed on the wait list. Discussed the case with Dr. Tierney, hospitalist at [facility] at 1545. Patient will continue to be on the wait list at [facility]. Patient states that she believes that she had a reaction to heparin in the past, but she is unsure. She is on Eliquis so we will continue this. The patient will be kept in the emergency department until she can be transferred. Patient signed out to the oncoming emergency department physician. This document was made in part using voice recognition software. While efforts are made to proofread this document, sound alike and grammatical errors may occur. Departure - Departure Disposition: 02 Transfer Acute Care Hosp Clinical Impression: Unstable angina Condition: Stable
[2020-12-29 14:38] LABS: B. PARAPERTUSSIS- RESP PCR PAN NOT DETECTED; B. PERTUSSIS- RESP PCR PANEL NOT DETECTED; C. PNEUMONIAE- RESP PCR PANEL NOT DETECTED; CORONAVIRUS 229E-RESP PCR NOT DETECTED; CORONAVIRUS HKU1-RESP PCR NOT DETECTED; CORONAVIRUS NL63-RESP PCR NOT DETECTED; CORONAVIRUS OC43-RESP PCR NOT DETECTED; HUMAN METAPNEUMOVIRUS NOT DETECTED; INFLUENZA A- RESP PCR PANEL NOT DETECTED; INFLUENZA B - RESP PCR PANEL NOT DETECTED; M. PNEUMONIAE- RESP PCR PANEL NOT DETECTED; PARAINFLUENZA VIRUS 1 NOT DETECTED; PARAINFLUENZA VIRUS 2 NOT DETECTED; PARAINFLUENZA VIRUS 3 NOT DETECTED; PARAINFLUENZA VIRUS 4 NOT DETECTED; RHINOVIRUS/ENTEROVIRUS NOT DETECTED; RSV- RESP PCR PANEL NOT DETECTED; SARS-CoV-2 -RESP PCR PANEL NOT DETECTED
[2020-12-29] MEDS ORDERED: lamoTRIgine 100 MG TABLET PO SCH (21:00)
[2020-12-29] MEDS ORDERED: APIXABAN 5 MG TABLET PO SCH (21:00)
--- NOTE | 2020-12-30 07:23 | ED Physician Documentation ---
ED Addendum - Addendum Addendum: 12/30/20 07:21The patient has remained stable overnight without any symptoms. She rested well. Vital signs are stable. We got informed from [facility] that they were able to accept the patient this morning. EMTALA forms were filled out and the patient will be transferred by ALS ambulance. Disposition: The patient is transferred to acute care hospital in stable condition Diagnoses: 1. Chest pain exertional 2. Unstable angina
[2020-12-30 07:55] VITALS: BP 148/72
[2020-12-30] MEDS ORDERED: POTASSIUM CHLORIDE 10 MEQ CAPSULE PO SCH (08:00)
[2020-12-30] MEDS ORDERED: SERTRALINE 50 MG TABLET PO SCH (09:00)
[2020-12-30] MEDS ORDERED: METOPROLOL SUCCINATE 50 MG TABLET PO SCH (09:00)
[2020-12-30] MEDS ORDERED: diltiaZEM CD 120 MG CAPSULE PO SCH (09:00)
[2020-12-30] MEDS ORDERED: FUROSEMIDE 20 MG TABLET PO SCH (09:00)
== END 2020-12-30 08:02 | disposition short-term general hospital (02) ==
LOC: ED 10:56
DX: I20.0 Unstable angina (principal); I10 Essential (primary) hypertension; I48.91 Unspecified atrial fibrillation; Z87.891 Personal history of nicotine dependence; Z20.822 Contact with and (suspected) exposure to COVID-19; Z86.711 Personal history of pulmonary embolism; Z86.718 Personal history of other venous thrombosis and embolism; Z79.01 Long term (current) use of anticoagulants
CPT/HCPCS: 36415; 71045; 80053; 83690; 84484; 85025; 87631; 93005; 99285; A9270; 0202U

== ENCOUNTER 2020-12-30 08:03 | Outpatient (CLI) | payer MEDICARE, OTHER | END 2020-12-30 08:04 | disposition short-term general hospital (02) | LOC: EMS 08:03 | PROVIDERS: ATTEND Emergency Medicine | DX: I20.0 Unstable angina (principal) | CPT/HCPCS: A0425; A0428 ==

== ENCOUNTER 2021-01-23 11:44 | Outpatient (CLI) | payer MEDICARE, OTHER | END 2021-01-23 11:45 | disposition critical access hospital (66) | LOC: EMS 11:44 | DX: S00.03XA Contusion of scalp, initial encounter (principal); W18.39XA Other fall on same level, initial encounter; Y93.01 Activity, walking, marching and hiking; Y92.512 Supermarket, store or market as the place of occurrence of the external cause | CPT/HCPCS: A0425; A0429 ==

== ENCOUNTER 2021-01-23 12:04 | Emergency (ER) | payer MEDICARE, OTHER ==
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
[2021-01-23] MEDS ORDERED: PROTHROMBIN COMPLEX CONC 500 UNIT VIAL IVP STA (12:49)
--- NOTE | 2021-01-23 13:07 | CT Report ---
PROCEDURE: CERVICAL SPINE WO INDICATIONS: head inj TECHNIQUE: Noncontrast 3 mm thick sections acquired from the skull base to the T4 level. Sagittal and coronal r eformats were then constructed. For radiation dose reduction, the following was used: automated exp osure control, adjustment of mA and/or kV according to patient size. COMPARISON: None. FINDINGS: Image quality: Excellent. Bones: Nondisplaced right occipital skull fracture. In the cervical spine, no fractures or dislocatio ns. Visualized superior ribs are intact. Diffuse osteopenia. Straightening of the normal lordotic cu rvature. Scattered multilevel endplate spurring and diffuse facet arthropathy. Diffuse moderate narr owing of the cervical disc spaces. Soft tissues: Prevertebral soft tissues are normal in thickness. No paravertebral hematomas. No ap ical pneumothoraces. IMPRESSION: No acute cervical spine fracture. Right occipital nondisplaced skull fracture Diffuse moderate cervical spondylosis and facet arthropathy Straightening of the normal lordotic curvature. Reviewed by: Miguel Ángel Walter MD on 01/23/2021 1:05 PM PST Approved by: Miguel Ángel Walter MD on 01/23/2021 1:05 PM PST Station ID: [id number]
[2021-01-23 13:08] LABS: BASOPHILS # (AUTO) 0.1 10^3/uL (0.0-0.1); BASOPHILS % (AUTO) 0.5 %; EOSINOPHILS # (AUTO) 0.2 10^3/uL (0.0-0.7); EOSINOPHILS % (AUTO) 2.2 %; HCT - HEMATOCRIT 42.7 % (37.0-47.0); HGB - HEMOGLOBIN 14.1 g/dL (12.0-16.0); LYMPHOCYTES # (AUTO) 1.4 10^3/uL (1.5-3.5); LYMPHOCYTES % (AUTO) 14.9 %; MEAN CORPUSCULAR HEMOGLOBIN 31.8 pg (27.0-31.0); MEAN CORPUSCULAR VOLUME 96.2 fL (81.0-99.0); MEAN PLATELET VOLUME 8.9 fL (7.9-10.8); MONOCYTES # (AUTO) 0.8 10^3/uL (0.0-1.0); MONOCYTES % (AUTO) 7.9 %; NEUTROPHILS # (AUTO) 7.2 10^3/uL (1.5-6.6); NEUTROPHILS % (AUTO) 74.2 %; PLT - PLATELET COUNT 210 10^3/uL (130-450); RED BLOOD COUNT 4.44 10^6/uL (4.20-5.40); RED CELL DISTRIBUTION WIDTH 13.1 % (12.0-15.0); WHITE BLOOD COUNT 9.7 x10^3/uL (4.8-10.8)
--- NOTE | 2021-01-23 13:13 | CT Report ---
PROCEDURE: HEAD WO INDICATIONS: head injury TECHNIQUE: Noncontrast 4.5 mm thick angled axial sections acquired from the foramen magnum to the vertex. For r adiation dose reduction, the following was used: automated exposure control, adjustment of mA and/or kV according to patient size. COMPARISON: None. FINDINGS: Image quality: Excellent. CSF spaces: Basal cisterns are patent. No extra-axial fluid collections. Ventricles are normal in size and shape. Brain: No midline shift. Acute probable subdural hemorrhage seen adjacent to the anterior falx and r ight frontal lobe.. Williamson-white matter interface is normal. Skull and face: Status post right craniotomy. Nondisplaced right occipital skull fracture. There is a midline occipital scalp swelling and hematoma. Sinuses: Visualized sinuses and mastoids are clear. IMPRESSION: Nondepressed right occipital skull fracture. Midline occipital scalp swelling and hematoma Extra-axial acute blood (most likely subdural) layering along the anterior falx and in the right fron wyatt region. Additional left frontal presumed subdural acute blood. Findings (including all critical results) and recommendations were personally telephoned and discusse d with Dr. Ventura on 01-23-21 13:09 Reviewed by: Miguel Ángel Moy MD on 01/23/2021 1:12 PM PST Approved by: Miguel Ángel Moy MD on 01/23/2021 1:12 PM PST Station ID: [id number]
[2021-01-23 13:21] LABS: CALCIUM 9.8 mg/dL (8.5-10.3); CREATININE 0.6 mg/dL (0.4-1.0); POTASSIUM 4.3 mmol/L (3.5-5.0)
[2021-01-23 13:29] VITALS: BP 151/95
[2021-01-23 14:41] LABS: B. PARAPERTUSSIS- RESP PCR PAN NOT DETECTED; B. PERTUSSIS- RESP PCR PANEL NOT DETECTED; CORONAVIRUS 229E-RESP PCR NOT DETECTED; CORONAVIRUS HKU1-RESP PCR NOT DETECTED; CORONAVIRUS NL63-RESP PCR NOT DETECTED; CORONAVIRUS OC43-RESP PCR NOT DETECTED; HUMAN METAPNEUMOVIRUS NOT DETECTED; INFLUENZA A- RESP PCR PANEL NOT DETECTED; INFLUENZA B - RESP PCR PANEL NOT DETECTED; PARAINFLUENZA VIRUS 1 NOT DETECTED; PARAINFLUENZA VIRUS 2 NOT DETECTED; PARAINFLUENZA VIRUS 3 NOT DETECTED; PARAINFLUENZA VIRUS 4 NOT DETECTED; RHINOVIRUS/ENTEROVIRUS NOT DETECTED; RSV- RESP PCR PANEL NOT DETECTED; SARS-CoV-2 -RESP PCR PANEL NOT DETECTED
[2021-01-23 14:42] LABS: C. PNEUMONIAE- RESP PCR PANEL NOT DETECTED; M. PNEUMONIAE- RESP PCR PANEL NOT DETECTED
== END 2021-01-23 13:34 | disposition short-term general hospital (02) ==
LOC: EDUNIT# → ED 12:04
DX: S06.5X9A Traumatic subdural hemorrhage with loss of consciousness of unspecified duration, initial encounter (principal); S02.119A Unspecified fracture of occiput, initial encounter for closed fracture; W01.198A Fall on same level from slipping, tripping and stumbling with subsequent striking against other object, initial encounter; Y92.410 Unspecified street and highway as the place of occurrence of the external cause; Z79.01 Long term (current) use of anticoagulants; Z87.891 Personal history of nicotine dependence; Z20.822 Contact with and (suspected) exposure to COVID-19
CPT/HCPCS: 36415; 70450; 72125; 80048; 85025; 87631; 96374; 99285; 99291; J7168; 0202U